=== PATIENT | female | born 1940 | race Caucasian/White ===

== ENCOUNTER → 2018-04-23 13:39 | Outpatient (CLI) | payer MEDICARE, OTHER, SELFPAY ==
[2018-04-23 14:42] LABS: Add Manual Diff / Slide Review NO; Hematocrit 42.1 % (36-46); Hemoglobin 13.9 g/dL (12.0-16.0); Lymphocytes Percent Auto 44.9 % (25-40); Mean Corpuscular HGB Conc 33.1 % (30-36); Mean Corpuscular Hemoglobin 29.3 PG (26-34); Mean Corpuscular Volume 88.4 fL (80-100); Neutrophils Absolute Auto 1900 /uL (3000-5900); Neutrophils Percent Auto 40.1 % (50-75); Platelet Count 187 X10^3/uL (150-400); Red Blood Cell Count 4.76 X10^6/uL (4.0-5.2); Red Cell Distribution Width 15.7 % (11.6-14.8); White Blood Cell Count 4.7 X10^3/uL (4.5-11.0)
== END ==
PROVIDERS: Visit Provider Nurse Practitioner Family
DX: D61.9 Aplastic anemia, unspecified (principal)
CPT/HCPCS: 36415; 85025

== ENCOUNTER 2018-05-19 13:28 | Emergency (ER) | payer MEDICARE, OTHER, SELFPAY ==
--- NOTE | 2018-05-19 13:33 | ED_ITS ---
HPI - Head Injury <POLINA Harris - Last Filed: 05/19/18 21:26> General Chief complaint: Head Injury Stated complaint: FELL,HIT HEAD Time Seen by Provider: 05/19/18 13:31 Source: patient Mode of arrival: ambulatory Limitations: no limitations History of Present Illness HPI Narrative: 77-year-old female with history of aplastic anemia and is a nonsmoker here for complaint of a slight swelling and ecchymosis to the left forehead and the left face in the area of the orbit. She had a ground level fall last night she states that she was trying to put on a pair of pants when she fell forward hitting her forehead and face. She denies any loss of consciousness. She denies any nausea vomiting. She denies any blood thinner use. She denies any neck pain. Pain and injury is limited to the left forehead and left face area. No other concerns or complaints MD Complaint: head injury Related Data Home Medications Medication Instructions Recorded Confirmed fluticasone-salmeterol [Advair 1 inh INHALATION Q12H PRN #0 04/26/11 05/19/18 Diskus] levothyroxine 112 mcg PO QDAY #0 04/26/11 05/19/18 Probiotic 1 cap PO DAILY 05/19/18 05/19/18 Urinary Tract Care 1 tab PO DAILY 05/19/18 05/19/18 Ventolin HFA 1 puff INHALATION PRN PRN 05/19/18 05/19/18 ascorbic acid (vitamin C) [Vitamin 1 g PO DAILY 05/19/18 05/19/18 C] cranberry 1 tab PO DAILY 05/19/18 05/19/18 d-mannose 1 dose PO DAILY 05/19/18 05/19/18 Allergies Allergy/AdvReac Type Severity Reaction Status Date / Time No Known Drug Allergies Allergy Verified 05/19/18 13:48 Review of Systems <POLINA Harris - Last Filed: 05/19/18 21:26> Constitutional Denies chills, Denies fever(s), Denies lethargy and Denies weakness Eyes Denies change in vision, Denies eye discharge, Denies irritation and Denies loss of vision ENT Ears, Nose, Mouth, and Throat: Denies change in voice, Denies neck pain and Denies sore throat Cardiovascular Denies chest pain, Denies irregular heart rhythm, Denies lightheadedness, Denies palpitations, Denies dyspnea, Denies dyspnea on exertion and Denies orthopnea Respiratory Denies cough, Denies dyspnea, Denies dyspnea on exertion and Denies wheezing Gastrointestinal Gastrointestinal: Denies abdominal pain, Denies change in bowel habits, Denies diarrhea, Denies nausea and Denies vomiting Genitourinary Denies hematuria, Denies flank pain, Denies urinary incontinence and Denies urinary urgency Musculoskeletal Denies neck pain Integumentary/Breasts Denies pruritus, Denies erythema, Denies rash and Denies wounds Neurologic Denies confusion, Denies loss of vision and Denies weakness Comments: Ground level fall striking left forehead and left face area Psychiatric Denies anxiety, Denies confusion, Denies depression, Denies homicidal ideation and Denies suicidal ideation Endocrine Denies palpitations Hematologic/Lymphatic Denies easy bruising Allergic/Immunologic Denies wheezing Exam <POLINA Harris - Last Filed: 05/19/18 21:26> Initial Vital Signs Initial Vital Signs: Vital Signs Temperature 97.4 F L 05/19/18 13:41 Pulse Rate 92 H 05/19/18 13:41 Respiratory Rate 16 05/19/18 13:41 Blood Pressure 159/97 H 05/19/18 13:41 Pulse Oximetry 95 05/19/18 13:41 Const General: cooperative and well developed Nutritional Appearance: well nourished Orientation: alert, awake, oriented x3 and not confused [facility] Head: abrasion, Cronin's sign, contusion, No hematoma, No laceration and other ( Ecchymosis and slight swelling to the left forehead area and to the area of the left orbit. Ecchymosis to left lower eyelid. ) Nose: other Mouth: oral mucosae normal and moist mucous membranes Teeth and gingiva: dentition normal Throat: posterior oropharynx normal Eyes Conjunctivae: conjunctivae normal Sclera: sclerae normal Pupils: PERRL EOM: EOM intact bilaterally Neck Neck: normal visual inspection, trachea midline, No lymphadenopathy, No midline deformity and No JVD Lymphatic: No lymphedema Resp Effort & Inspection: normal respiratory effort, able to speak in complete sentences, no respiratory distress and no use of accessory muscles Auscultation: clear to auscultation bilaterally, no rales, no rhonchi and no wheezes Cardio Rate: regular rate Rhythm: regular rhythm Heart Sounds: no click, no gallops, no murmurs and no rubs Skin General: no rashes or lesions noted, No jaundice and No petechiae Neuro General: alert, oriented x3, gait normal and no focal motor deficits Speech: speech normal <Abiodun Walls DO - Last Filed: 05/23/18 20:47> Initial Vital Signs Initial Vital Signs: Vital Signs Temperature 97.4 F L 05/19/18 13:41 Pulse Rate 92 H 05/19/18 13:41 Respiratory Rate 16 05/19/18 13:41 Blood Pressure 159/97 H 05/19/18 13:41 Pulse Oximetry 95 05/19/18 13:41 Course <POLINA Harris - Last Filed: 05/19/18 21:26> Orders Ordered: Discontinued Medications Acetaminophen (Tylenol) 650 mg PO NOW ONE Stop: 05/19/18 13:42 Last Admin: 05/19/18 13:57 Dose: 650 mg Vital Signs - 8 hr 05/19/18 13:41 05/19/18 15:20 Temperature 97.4 F L Pulse Rate 92 H 80 Respiratory Rate 16 17 Blood Pressure 159/97 H 117/66 Pulse Oximetry 95 <Abiodun Walls DO - Last Filed: 05/23/18 20:47> Orders Ordered: Discontinued Medications Acetaminophen (Tylenol) 650 mg PO NOW ONE Stop: 05/19/18 13:42 Last Admin: 05/19/18 13:57 Dose: 650 mg Vital Signs - 8 hr 05/19/18 13:41 05/19/18 15:20 Temperature 97.4 F L Pulse Rate 92 H 80 Respiratory Rate 16 17 Blood Pressure 159/97 H 117/66 Pulse Oximetry 95 MDM - Head Injury <POLINA Harris - Last Filed: 05/19/18 21:26> Imaging Data CT scan - head: Radiologist's impression: [place] [address] [place] Scan Report Signed Patient: Andria Hernandez JMR#: [id number] : 3Acct:[id number] Age/Sex: 77 / FDate of Service: 05/19/18 Loc: ED Accession Number: [id number] Procedure: CT head/brain wo con Ordering Provider: Galindo Jones PROCEDURE: CT HEAD/BRAIN WO CON INDICATIONS: glf hitting left forehead and face TECHNIQUE: Noncontrast 4.5 mm thick angled axial sections acquired from the foramen magnum to the vertex, with coronal and sagittal reformats. For radiation dose reduction, the following was used: automated exposure control, adjustment of mA and/or kV according to patient size. COMPARISON: None. FINDINGS: Image quality: Excellent. CSF spaces: Basal cisterns are patent. No extra-axial fluid collections. The ventricles are symmetric in size and shape. Brain: No intracranial bleeds or masses. There is cerebral volume loss for age , with resultant ventricular and sulcal prominence. There are periventricular and deep white matter chronic small vessel ischemic changes. There is intracranial internal carotid artery atherosclerosis. Foci of old ischemia are noted within the right basal ganglia and external capsule. Skull and face: Calvarium and visualized facial bones appear intact, without suspicious lesions. Left frontal scalp hematoma. Sinuses: Visualized sinuses demonstrate mucosal thickening and fluid within the right maxillary sinus, seen only in partial view. IMPRESSION: 1. No acute intracranial process. 2. Mild to moderate atrophy and chronic microvascular ischemic changes. 3. Left frontal scalp hematoma. 4. Partially visualized mucosal thickening and fluid in the right maxillary sinus suggestive of sinusitis. Dictated by: Claudette Ho M.D. on 05/19/2018 at 15:01 Approved by: Claudette Ho M.D. on 05/19/2018 at 15:[address]: Radiologist's impression: [place] [address] CT Scan Report Signed Patient: Andria Hernandez R#: [id number] : 3Acct:[id number] Age/Sex: 77 / FDate of Service: 05/19/18 Loc: ED Accession Number: [id number] Procedure: CT facial bones wo con Ordering Provider: Galindo Jones PROCEDURE: CT FACIAL BONES WO CON INDICATIONS: glf hitting left forehead and face TECHNIQUE: Noncontrast 2.5 mm thick axial images acquired from the mandible through the frontal sinuses, with coronal and sagittal reformatting. For radiation dose reduction, the following was used: automated exposure control, adjustment of mA and/or kV according to patient size. COMPARISON: None. FINDINGS: Image quality: Excellent. Bones and teeth: Orbital balbuena are intact. Sinus balbuena show no fracture or deformity. Nasal bones and septum are intact. Visualized portions of the mandible demonstrate no fractures or subluxation. Zygomatic arches are intact. Pterygoid plates are intact. Visualized portions of the skull base and auditory canals are intact. Sinuses: Includes full thickening including areas of fluid are present in the right maxillary sinus. Soft tissues: Mild left frontal scalp hematoma. Vascular: Visualized vascular structures appear normal in the absence of contrast. Bony vascular foramina and canals are intact. IMPRESSION: 1. Mild left scalp hematoma. No visualized fractures. 2. Mucosal thickening and fluid within the right maxillary sinus suggestive of sinusitis. Dictated by: Claudette Ho M.D. on 05/19/2018 at 14:37 Approved by: Claudette Ho M.D. on 05/19/2018 at 14:56 MDM Narrative Medical decision making narrative: CT of the head and the face were obtained were negative for any acute findings. Signs and symptoms presents as contusion to the left forehead and left face area. [id number] Tylenol or Motrin as needed for any discomfort. Ice to area to help with any swelling. Follow up with primary care provider next week. Return emergency room for any worsening symptoms. Head injury instructions are provided with warning signs to return to the emergency room. Discharge Plan Departure Patient Disposition: Home Clinical Impression: Minor closed head injury Discharge Date/Time: 05/19/18 15:20 Interventions: ED Discharge Assessment Last Done: 05/19/18 15:20 Instructions: Closed Head Injury Activity Restrictions/Additional Instructions: CT of the head and the face were obtained were negative for any acute findings. Signs and symptoms presents as contusion to the left forehead and left face area. [id number] Tylenol or Motrin as needed for any discomfort. Ice to area to help with any swelling. Follow up with primary care provider next week. Return emergency room for any worsening symptoms. Head injury instructions are provided with warning signs to return to the emergency room. Prescriptions: No Action levothyroxine 112 MCG tablet 112 mcg PO QDAY Qty: 0 RF: 0 fluticasone-salmeterol [Advair Diskus] 250-50 mcg/dose Blister With Device 1 inh INHALATION Q12H PRN (Reason: BREATHING ISSUES) Qty: 0 RF: 0 ascorbic acid (vitamin C) [Vitamin C] 500 mg Tablet 1 g PO DAILY RF: 0 Probiotic 1 cap PO DAILY RF: 0 Urinary Tract Care 1 tab PO DAILY RF: 0 Ventolin HFA 1 puff Inhalation PRN PRN (Reason: Shortness Of Breath) RF: 0 cranberry 1 tab PO DAILY RF: 0 d-mannose 1 dose PO DAILY RF: 0 Referrals: [facility] [Provider Group]
[2018-05-19 13:41] VITALS: BP 159/97; PULSE 92; RESP 16; TEMP 36.3; O2SAT 95
[2018-05-19] MEDS: ACETAMINOPHEN 325 MG TABLET 650 MG PO (13:57)
--- NOTE | 2018-05-19 14:41 | DI.CT.S_ITS ---
PROCEDURE: CT HEAD/BRAIN WO CON INDICATIONS: glf hitting left forehead and face TECHNIQUE: Noncontrast 4.5 mm thick angled axial sections acquired from the foramen magnum to the vertex, with coronal and sagittal reformats. For radiation dose reduction, the following was used: automated exposure control, adjustment of mA and/or kV according to patient size. COMPARISON: None. FINDINGS: Image quality: Excellent. CSF spaces: Basal cisterns are patent. No extra-axial fluid collections. The ventricles are symmetric in size and shape. Brain: No intracranial bleeds or masses. There is cerebral volume loss for age, with resultant ventricular and sulcal prominence. There are periventricular and deep white matter chronic small vessel ischemic changes. There is intracranial internal carotid artery atherosclerosis. Foci of old ischemia are noted within the right basal ganglia and external capsule. Skull and face: Calvarium and visualized facial bones appear intact, without suspicious lesions. Left frontal scalp hematoma. Sinuses: Visualized sinuses demonstrate mucosal thickening and fluid within the right maxillary sinus, seen only in partial view. IMPRESSION: 1. No acute intracranial process. 2. Mild to moderate atrophy and chronic microvascular ischemic changes. 3. Left frontal scalp hematoma. 4. Partially visualized mucosal thickening and fluid in the right maxillary sinus suggestive of sinusitis. Dictated by: Claudette Ho M.D. on 05/19/2018 at 15:01 Approved by: Claudette Ho M.D. on 05/19/2018 at 15:03
--- NOTE | 2018-05-19 14:41 | DI.CT.S_ITS ---
PROCEDURE: CT FACIAL BONES WO CON INDICATIONS: glf hitting left forehead and face TECHNIQUE: Noncontrast 2.5 mm thick axial images acquired from the mandible through the frontal sinuses, with coronal and sagittal reformatting. For radiation dose reduction, the following was used: automated exposure control, adjustment of mA and/or kV according to patient size. COMPARISON: None. FINDINGS: Image quality: Excellent. Bones and teeth: Orbital balbuena are intact. Sinus balbuena show no fracture or deformity. Nasal bones and septum are intact. Visualized portions of the mandible demonstrate no fractures or subluxation. Zygomatic arches are intact. Pterygoid plates are intact. Visualized portions of the skull base and auditory canals are intact. Sinuses: Includes full thickening including areas of fluid are present in the right maxillary sinus. Soft tissues: Mild left frontal scalp hematoma. Vascular: Visualized vascular structures appear normal in the absence of contrast. Bony vascular foramina and canals are intact. IMPRESSION: 1. Mild left scalp hematoma. No visualized fractures. 2. Mucosal thickening and fluid within the right maxillary sinus suggestive of sinusitis. Dictated by: Claudette Ho M.D. on 05/19/2018 at 14:37 Approved by: Claudette Ho M.D. on 05/19/2018 at 14:56
[2018-05-19 15:20] VITALS: BP 117/66; PULSE 80; RESP 17
== END 2018-05-19 15:20 | disposition home or self-care (01) ==
PROVIDERS: Emergency Provider Nurse Practitioner Family
DX: S00.90XA Unspecified superficial injury of unspecified part of head, initial encounter (principal); W18.30XA Fall on same level, unspecified, initial encounter
CPT/HCPCS: 70450; 70486; 99283; 99284

== ENCOUNTER → 2019-07-23 11:24 | Outpatient (CLI) | payer MEDICARE, SELFPAY ==
--- NOTE | 2019-07-23 11:30 | DI.US.S_ITS ---
PROCEDURE: US EXTREMITY NONVASC LOWER RT INDICATIONS: SWELLING, PAIN TECHNIQUE: Real-time scanning was performed of the right popliteal fossa, with image documentation. COMPARISON: None. FINDINGS: Complex Manley's cyst measuring 5.8 x 1.3 cm with additional adjacent complex cyst measuring 5.1 x 1.5 cm IMPRESSION: 2 popliteal fossa complex fluid collections suspicious for Manley's cyst. Dictated by: Rafael Diaz RR Interpreted: Gallo Lugo MD on 07/24/2019 at 8:33 Approved by: Gallo Lugo M.D. on 07/24/2019 at 11:21
== END ==
PROVIDERS: PCP Internal Medicine; Referring Provider Internal Medicine; Visit Provider Internal Medicine
DX: M25.561 Pain in right knee (principal); M71.21 Synovial cyst of popliteal space [Baker], right knee
CPT/HCPCS: 76882

== ENCOUNTER → 2019-12-08 11:20 | Outpatient (CLI) | payer MEDICARE, SELFPAY ==
[2019-12-09 06:45] LABS: COVID19 Sendout Not Detected (Not Detect)
== END ==
PROVIDERS: PCP Internal Medicine; Visit Provider Physician Assistant
DX: Z01.812 Encounter for preprocedural laboratory examination (principal)
CPT/HCPCS: 87635

== ENCOUNTER → 2019-12-11 11:46 | Outpatient (CLI) | payer MEDICARE, SELFPAY ==
--- NOTE | 2019-12-16 09:57 | PM.PFT.1 ---
Pulmonary Function Test Referral & Results Date Patient Seen: 12/11/19 Requesting provider: Diego Gaviria Results: The spirometry demonstrates an FVC of 1.42 L which is 56% of predicted. The FEV1 was measured at 0.92 L which is 49% of predicted. The FEV1/FVC ratio was 65 which is 86% of predicted. Following the administration of bronchodilator there was a 23% improvement in FEV1 and an 85% improvement in FEF 25-75%. Lung volumes show an SVC of 1.64 L which is 65% of predicted. The diffusing capacity was measured at 16.04 which is 74% of predicted. No hemoglobin value was provided, so no correction for potential anemia could be made, if appropriate. The maximum voluntary ventilation was reduced Interpretation: This study demonstrates moderately severe obstructive lung disease with FEV1 of less than 1 L, however there is evidence of significant benefit following bronchodilator as above There is also ayqe-pi-ecbxcgln restrictive lung disease based on reduction SVC There is also mild reduction in diffusing capacity suggesting an element of disease at the capillary alveolar level
== END ==
PROVIDERS: PCP Internal Medicine; Referring Provider Internal Medicine; Visit Provider Internal Medicine
DX: J45.998 Other asthma (principal)
CPT/HCPCS: 94060; 94726; 94729

== ENCOUNTER 2020-03-01 12:12 | Observation (INO) | payer MEDICARE, SELFPAY ==
[2020-03-01] VITALS (20 sets, daily range): BP systolic 123–185; BP diastolic 67–90; PULSE 51–89; RESP 14–36; TEMP 36.7–37.2; O2SAT 95–99; BMI 25.4
--- NOTE | 2020-03-01 12:28 | ED_ITS ---
HPI - Neuro Symptoms/Deficit General Chief Complaint: Neuro Symptoms/Deficit Stated Complaint: Feeling Disoriented and Foggy Time Seen by Provider: 03/01/20 12:20 Source: patient Mode of arrival: Ambulatory Limitations: no limitations History of Present Illness HPI Narrative: 79-year-old woman with a history of hypothyroidism and asthma who presents after noticing an episode of disorientation at 10:45 a.m. this morning [place] [place]. She noted acute confusion, was not sure where she was going what she was doing how she was going to get there with symptoms improving nicely. She was driving was able to drive off the [place] parked briefly was feeling better and then drove to the emergency room. On initial presentation she is alert oriented with no focal neurologic findings and seemingly completely intact cognitively. On Anticoagulants: No Related Data Home Medications Medication Instructions Recorded Confirmed fluticasone propion-salmeterol 1 inh INHALATION Q12H PRN #0 04/26/11 10/18/18 [Advair Diskus] levothyroxine 112 mcg PO QDAY #0 04/26/11 10/18/18 Probiotic 1 cap PO DAILY 05/19/18 10/18/18 Urinary Tract Care 1 tab PO DAILY 05/19/18 10/18/18 Ventolin HFA 1 puff INHALATION PRN PRN 05/19/18 10/18/18 ascorbic acid (vitamin C) [Vitamin 1 g PO DAILY 05/19/18 10/18/18 C] cranberry 1 tab PO DAILY 05/19/18 10/18/18 d-mannose 1 dose PO DAILY 05/19/18 10/18/18 dextroamphetamine PO 10/18/18 10/18/18 lorazepam PO 10/18/18 10/18/18 Allergies Allergy/AdvReac Type Severity Reaction Status Date / Time No Known Drug Allergies Allergy Verified 03/01/20 12:23 Review of Systems Review of Systems Narrative: Pertinent positive and negative findings as per HPI Remainder of review of systems is otherwise unremarkable for Constitutional: Fevers, chills, weakness ENT: No sore throat, neck pain, ear pain CV: Chest pain, palpitations, dyspnea on exertion Respiratory: Cough, wheeze, dyspnea GI: Nausea, vomiting, diarrhea, change in bowel habits, black or bloody stools : Dysuria, hematuria, flank pain MS: Muscle weakness, numbness, joint swelling or warmth Skin: Rashes, nonhealing lesions Neuro: Syncope, dizziness, tingling Patient History Medical History Aplastic anemia (Acute) Asthma (Acute) Hypothyroidism (acquired) (Acute) Social History Smoking Status: Never smoker Smoking Status: Never smoker alcohol intake frequency: 0-2 drinks per day Substance Use Type: marijuana Exam Narrative Exam Narrative: General: Healthy appearing, in no acute distress. Able to give a complete and coherent history. Well-nourished well-developed HEENT: Moist mucous membranes, normal sclera with reactive pupils, Neck: No JVD, supple Respiratory: Lungs are clear to auscultation, no wheezing no rales no rhonchi. Full and symmetrical air movement Cardiac: Regular rate and rhythm no murmurs no bruits Abdomen: Soft nontender good bowel tones, no flank pain Skin: Warm and dry, no rashes Neurologic: Grossly neurologically intact with no obvious asymmetries or abnormalities. NIH=0 Extremities: No trauma, well perfused Psych: Cooperative, appropriate insight and affect Initial Vital Signs Initial Vital Signs: Vital Signs Temperature 98.1 F 03/01/20 12:20 Pulse Rate 89 03/01/20 12:20 Respiratory Rate 14 03/01/20 12:20 Blood Pressure 185/90 H 03/01/20 12:20 Pulse Oximetry 96 03/01/20 12:20 Course Orders Ordered: ED Orders 03/01/20 12:27 Urine Drug Screen, Rapid Stat 03/01/20 12:30 Complete Blood Count AUTO DIFF Stat Comprehensive Metabolic Panel Stat Partial Thromboplastin Time Stat Prothrombin Time INR Stat 03/01/20 12:34 EKG-12 Lead Stat 03/01/20 12:35 CT head/brain wo con Stat 03/01/20 14:48 MR head/brain wo/w con Stat COVID19 -ED/INPAT/OR/L&D Stat Sodium Chloride (Normal Saline 0.9%) 1,000 mls @ 150 mls/hr IV CONT ZEESHAN Last Admin: 03/01/20 12:51 Dose: 150 mls/hr Documented by: MMINOR Vital Signs Vital signs: Vital Signs - 8 hr 03/01/20 12:20 03/01/20 12:31 03/01/20 12:54 Temperature 98.1 F Pulse Rate 89 77 62 Respiratory Rate 14 18 Blood Pressure 185/90 H 168/82 H Pulse Oximetry 96 97 03/01/20 13:00 03/01/20 13:30 03/01/20 14:00 Temperature Pulse Rate 67 56 L 55 L Respiratory Rate 16 19 Blood Pressure 161/77 H 151/67 H Pulse Oximetry 99 03/01/20 14:01 03/01/20 14:30 Temperature Pulse Rate 53 L 74 Respiratory Rate 22 24 Blood Pressure 150/70 H 151/90 H Pulse Oximetry 99 99 MDM - Neuro Symptoms/Deficit Medical Records Attestation: I reviewed the patient's medical records. Lab Data Attestation: I reviewed the patient's lab results. Result diagrams: 03/01/20 12:30 03/01/20 12:30 Labs: Lab Results 03/01/20 03/01/20 03/01/20 Range/Units 12:30 12:30 12:30 WBC 4.7 (4.5-11.0) X10^3/uL RBC 4.82 (4.0-5.2) X10^6/uL Hgb 14.2 (12.0-16.0) g/dL Hct 42.3 (36-46) % MCV 87.9 (80-100) fL MCH 29.5 (26-34) PG MCHC 33.5 (30-36) % RDW 15.8 H (11.6-14.8) % Plt Count 137 L (150-400) X10^3/uL Neut % (Auto) 44.8 L (50-75) % Lymph % (Auto) 41.3 H (25-40) % [place] % (Auto) 11.9 (3-14) % Eos % (Auto) 1.9 L (2-4) % Baso % (Auto) 0.1 (0-2) % Neut # (Auto) 2100 (5928-4725) /uL Lymph # (Auto) 1900 (4050-4929) /uL [place] # (Auto) 600 (0-900) /uL Eos # (Auto) 100 (0-450) /uL Baso # (Auto) 0 (0-100) /uL PT 10.3 (10.1-12.7) SECONDS INR 0.9 (0.9-1.3) APTT 36 (26.4-36.2) SECONDS Sodium 139 (137-145) mmol/L Potassium 4.1 (3.4-5.1) mmol/L Chloride 103 (98-107) mmol/L Carbon Dioxide 26 (22-32) mmol/L BUN 13 (7-17) mg/dL Creatinine 0.64 (0.52-1.04) mg/dL Estimated GFR > 60.0 (>60) mL/min BUN/Creatinine Ratio 20.3 (6-22) Glucose 108 (80-110) mg/dL Calcium 9.5 (8.4-10.2) mg/dL Total Bilirubin 1.3 (0.2-1.3) mg/dL AST 38 H (14-36) IU/L ALT 18 (<35) IU/L Alkaline Phosphatase 76 (38-126) U/L Total Protein 8.1 (6.3-8.2) g/dL Albumin 4.6 (3.5-5.0) g/dL Globulin 3.5 (1.7-4.1) g/dL Albumin/Globulin Ratio 1.3 (1.0-2.8) Imaging Data CT scan - head: Radiologist's Impression: FINDINGS: Image quality: Excellent. CSF spaces: Basal cisterns are patent. No extra-axial fluid collections. The ventricles are symmetric in size and shape. Brain: There are old lacunars infarct in the right caudate and right internal capsule. No intracranial bleeds or masses. There is mild cerebral volume loss for age, with resultant ventricular and sulcal prominence. There are [id number] periventricular and deep white matter chronic small vessel ischemic changes. There is intracranial internal carotid artery atherosclerosis. Skull and face: Calvarium and visualized facial bones appear intact, without suspicious lesions. Sinuses: Visualized sinuses and mastoids are clear. IMPRESSION: 1. No acute intracranial abnormalities. 2. 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 3. Cerebral volume loss and chronic microvascular ischemic changes. Dictated by: Kevin Eisenberg M.D. on 03/01/2020 at 12:43 MDM Narrative Medical decision making narrative: 79-year-old woman with an hour and a half of acute confusion and cognitive complaints. Has resolved completely at this time. CT scan suggests no acute bleed however there is evidence of old lacunar infarcts. Events today are most consistent with a TIA and admission for further workup is recommended. Symptoms have resolved so tPA is not administered. Will speak with the hospitalist. Will try to expedite MRI to expedite overall admission. Discharge Plan Departure Patient Disposition: Admitted as Observation Clinical Impression: Transient cerebral ischemia Qualifiers: Transient cerebral ischemia type: unspecified Qualified Code(s): G45.9 - Transient cerebral ischemic attack, unspecified Referrals: Christina Saeed MD [Primary Care Provider] -
--- NOTE | 2020-03-01 12:35 | DI.CT.S_ITS ---
PROCEDURE: CT HEAD/BRAIN WO CON INDICATIONS: brief confusion/disorientation TECHNIQUE: Noncontrast 4.5 mm thick angled axial sections acquired from the foramen magnum to the vertex, with coronal and sagittal reformats. For radiation dose reduction, the following was used: automated exposure control, adjustment of mA and/or kV according to patient size. COMPARISON: [facility], CT, CT HEAD/BRAIN WO CON, 05/19/2018, 13:55. FINDINGS: Image quality: Excellent. CSF spaces: Basal cisterns are patent. No extra-axial fluid collections. The ventricles are symmetric in size and shape. Brain: There are old lacunars infarct in the right caudate and right internal capsule. No intracranial bleeds or masses. There is mild cerebral volume loss for age, with resultant ventricular and sulcal prominence. There are xero-oa-ugbrewly periventricular and deep white matter chronic small vessel ischemic changes. There is intracranial internal carotid artery atherosclerosis. Skull and face: Calvarium and visualized facial bones appear intact, without suspicious lesions. Sinuses: Visualized sinuses and mastoids are clear. IMPRESSION: 1. No acute intracranial abnormalities. 2. 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 3. Cerebral volume loss and chronic microvascular ischemic changes. Dictated by: Kevin Eisenberg M.D. on 03/01/2020 at 12:43 Approved by: Kevin Eisenberg M.D. on 03/01/2020 at 12:52
[2020-03-01 12:41] LABS: Add Manual Diff / Slide Review NO; Basophils Absolute Auto 0 /uL (0-100); Basophils Percent Auto 0.1 % (0-2); Eosinophils Absolute Auto 100 /uL (0-450); Eosinophils Percent Auto 1.9 % (2-4); Hematocrit 42.3 % (36-46); Hemoglobin 14.2 g/dL (12.0-16.0); Lymphocytes Absolute Auto 1900 /uL (1100-4500); Lymphocytes Percent Auto 41.3 % (25-40); Mean Corpuscular HGB Conc 33.5 % (30-36); Mean Corpuscular Hemoglobin 29.5 PG (26-34); Mean Corpuscular Volume 87.9 fL (80-100); Monocytes Absolute Auto 600 /uL (0-900); Monocytes Percent Auto 11.9 % (3-14); Neutrophils Absolute Auto 2100 /uL (1500-7000); Neutrophils Percent Auto 44.8 % (50-75); Platelet Count 137 X10^3/uL (150-400); Red Blood Cell Count 4.82 X10^6/uL (4.0-5.2); Red Cell Distribution Width 15.8 % (11.6-14.8); White Blood Cell Count 4.7 X10^3/uL (4.5-11.0)
[2020-03-01 12:47] LABS: INR 0.9 (0.9-1.3); Prothrombin Time 10.3 SECONDS (10.1-12.7)
[2020-03-01 12:49] LABS: PTT Partial Thromboplastin Tim 36 SECONDS (26.4-36.2)
[2020-03-01 12:51] LABS: Alanine Aminotransferase 18 IU/L (<35); Albumin 4.6 g/dL (3.5-5.0); Albumin Globulin Ratio 1.3 (1.0-2.8); Alkaline Phosphatase 76 U/L (38-126); Aspartate Aminotransferase 38 IU/L (14-36); BUN Creatinine Ratio 20.3 (6-22); Bilirubin Total 1.3 mg/dL (0.2-1.3); Blood Urea Nitrogen 13 mg/dL (7-17); Calcium 9.5 mg/dL (8.4-10.2); Carbon Dioxide 26 mmol/L (22-32); Chloride 103 mmol/L (98-107); Estimated Glomerular Filt Rate > 60.0 mL/min (>60); Globulin 3.5 g/dL (1.7-4.1); Glucose 108 mg/dL (80-110); HEMOLYSIS < 15 (0-50); Potassium 4.1 mmol/L (3.4-5.1); Sodium 139 mmol/L (137-145); Total Protein 8.1 g/dL (6.3-8.2)
[2020-03-01] MEDS: SODIUM CHLORIDE 0.9% 1,000 ML 150 ML IV (12:51)
--- NOTE | 2020-03-01 14:48 | DI.MRI.S_ITS ---
PROCEDURE: MR HEAD/BRAIN WO/W CON INDICATIONS: TIA - stroke concern TECHNIQUE: Noncontrast axial T1 spin echo, axial T2 fast spin echo, sagittal and axial FLAIR, coronal T2 fast spin echo, axial gradient echo, axial diffusion and ADC through the brain. After the administration of contrast, axial and coronal T1 spin echo with fat saturation through the brain. COMPARISON: [facility], CT, CT HEAD/BRAIN WO CON, 03/01/2020, 12:26. FINDINGS: Image quality: Excellent. CSF spaces: Basal cisterns are patent. No extra-axial fluid collections. Ventricles are normal in size and shape. Brain: No midline shift. No intracranial bleeds or masses. No abnormal intracranial enhancement. There is cerebral volume loss for age. There is periventricular white matter chronic small vessel ischemic change. There are old lacunar infarcts in the right posterior caudate, right anterior putamen and left frontal white matter. The brainstem appears normal. Diffusion-weighted images demonstrate no acute ischemic insults. No chronic ischemic insults. Normal intravascular flow voids are present. Skull and face: Calvarial marrow is normal in signal. Orbits appear normal. Sinuses: Sinuses and mastoids appear clear. IMPRESSION: 1. No acute intracranial abnormalities. 2. Old lacunar infarcts are present bilaterally. 3. Cerebral volume loss and chronic microvascular ischemic changes. Dictated by: Kevin Eisenberg M.D. on 03/01/2020 at 16:23 Approved by: Kevin Eisenberg M.D. on 03/01/2020 at 16:32
[2020-03-01 15:29] LABS: UR Morphine/Opiate cutoff 300 Negative (Negative); Ur Creatinine Normal (Normal); Ur Specific Gravity Normal (Normal); Urine Amphetamines Negative (Negative); Urine Barbiturates Negative (Negative); Urine Benzodiazepines Negative (Negative); Urine Cocaine Negative (Negative); Urine MDMA Negative (Negative); Urine Methadone Negative (Negative); Urine Methamphetamines Negative (Negative); Urine Oxycodone Negative (Negative); Urine Phencyclidine Negative (Negative); Urine Tetrahydrocannabinol Negative (Negative); Urine Tricyclic Antidepressant Negative (Negative); Urine pH Normal (Normal)
[2020-03-01 15:38] LABS: COVID19 -Nasal RAPID Negative (Negative)
--- NOTE | 2020-03-01 18:31 | PM.HP.1 ---
History of Present Illness History of Present Illness Date Patient Seen: 03/01/20 Time Patient Seen: 18:32 Chief complaint: Feeling Disoriented and Foggy Narrative: Andria Hernandez is a 79 year old female with PMH of ADD, anxiety, hypothyroidism, aplastic anemia in remission who presented to the emergency room after an episode of disorientation this morning on her way from home on [facility] to run some errands in [employer]. On the [employer] boat ride over she could not remember why she was on the [employer] or what she was doing. She was able to call a relative in town who was a prior nurse who recommended that she come to the emergency room to be evaluated. Symptoms lasted for about 20-30 minutes. She stated the relative was able to understand her speech, and the patient had no trouble with word finding. She denies any weakness, facial droop, slurred speech, numbness, tingling. She denies any chest pain, palpitations, shortness of breath, lower extremity edema, abdominal pain, nausea, vomiting, chest pressure, left arm pain or numbness. In the emergency room, patient was hypertensive but remainder vital signs were unremarkable. Laboratory evaluation revealed a mild thrombocytopenia with a platelet count of 137. Coagulation studies were unremarkable. Chemistries were unremarkable. Urine drug screen was negative. Head CT did show old lacunar infarcts bilaterally, and chronic microvascular ischemic changes. MRI was performed before her arrival to the floor and was negative for acute infarcts but did confirm old lacunar infarcts bilaterally. Patient History Medical History Aplastic anemia (Acute) Asthma (Acute) Hypothyroidism (acquired) (Acute) Family & Social History Safety & Behavioral: Feels Safe in Current Yes Environment Been Physically Hurt or No Threatened By a Person Tobacco & Substance use: Smoking Status Never smoker alcohol intake frequency 0-2 drinks per day Substance Use Type marijuana Meds Home Medications and Allergies Home Medications Medication Instructions Recorded Confirmed Type fluticasone propion-salmeterol 1 inh INHALATION Q12H PRN #0 04/26/11 10/18/18 History [Advair Diskus] levothyroxine 112 mcg PO QDAY #0 04/26/11 10/18/18 History Probiotic 1 cap PO DAILY 05/19/18 10/18/18 History Urinary Tract Care 1 tab PO DAILY 05/19/18 10/18/18 History Ventolin HFA 1 puff INHALATION PRN PRN 05/19/18 10/18/18 History ascorbic acid (vitamin C) [Vitamin 1 g PO DAILY 05/19/18 10/18/18 History C] cranberry 1 tab PO DAILY 05/19/18 10/18/18 History d-mannose 1 dose PO DAILY 05/19/18 10/18/18 History dextroamphetamine PO 10/18/18 10/18/18 History lorazepam PO 10/18/18 10/18/18 History Allergies Allergy/AdvReac Type Severity Reaction Status Date / Time No Known Drug Allergies Allergy Verified 03/01/20 12:23 Review of Systems Review of Systems Narrative: All other systems reviewed with the patient and are negative unless otherwise stated. Exam Vital Signs (past 8 hours): - 03/01/20 12:20 03/01/20 12:31 03/01/20 12:54 Temperature 98.1 F Pulse Rate 89 77 62 Respiratory Rate 14 18 Blood Pressure 185/90 H 168/82 H Pulse Oximetry 96 97 03/01/20 13:00 03/01/20 13:30 03/01/20 14:00 Temperature Pulse Rate 67 56 L 55 L Respiratory Rate 16 19 Blood Pressure 161/77 H 151/67 H Pulse Oximetry 99 03/01/20 14:01 03/01/20 14:30 03/01/20 15:00 Temperature Pulse Rate 53 L 74 57 L Respiratory Rate 22 24 23 Blood Pressure 150/70 H 151/90 H Pulse Oximetry 99 99 03/01/20 15:01 03/01/20 15:33 03/01/20 15:35 Temperature Pulse Rate 59 L 66 53 L Respiratory Rate 25 H 36 H 19 Blood Pressure 154/72 H 162/71 H Pulse Oximetry 96 03/01/20 16:18 03/01/20 16:30 03/01/20 16:31 Temperature Pulse Rate 54 L 53 L 51 L Respiratory Rate Blood Pressure 169/74 H 163/74 H Pulse Oximetry 98 95 03/01/20 17:30 03/01/20 17:40 Temperature 99.0 F Pulse Rate 61 71 Respiratory Rate 20 Blood Pressure 161/86 H 170/70 H Pulse Oximetry 97 Oxygen Delivery Method Room Air Oxygen Flow Rate 0 Narrative Exam Narrative: GENERAL APPEARANCE: Well developed, well nourished, mildly anxious constantly picking at her nails and fidgeting her hands or folding and unfolding a napkin. SKIN: Inspection of the skin reveals no rashes, ulcerations or petechiae. HEENT: Normocephalic atraumatic, extraocular muscles are intact, oropharynx is clear and mucous membranes are moist, neck is supple without adenopathy NECK: Supple and symmetric. There was no thyroid enlargement, and no tenderness, or masses were felt. CHEST: Normal AP diameter and normal contour without any kyphoscoliosis. LUNGS: Auscultation of the lungs revealed no wheezes, rhonchi, or rales. CARDIOVASCULAR: There was a regular rate and rhythm without any murmurs, gallops, rubs. Peripheral pulses were 2+ and symmetric. ABDOMEN: Soft and nontender with normal bowel sounds. No ascites was noted. MUSCULOSKELETAL: There was no tenderness or effusions noted. Muscle strength and tone were normal. EXTREMITIES: No cyanosis, clubbing or edema. NEUROLOGIC: Alert and oriented x 3. Normal affect. Gait was normal. Strength is +5/5 in the Upper Extremities and Lower Extremities Bilaterally. Sensation to touch was normal. No dysmetria. CN2-12 grossly intact bilaterally. Objective Labs Result Diagrams: 03/01/20 12:30 03/01/20 12:30 Labs: Laboratory Results - last 24 hr 03/01/20 03/01/20 03/01/20 12:30 12:30 12:30 WBC 4.7 RBC 4.82 Hgb 14.2 Hct 42.3 MCV 87.9 MCH 29.5 MCHC 33.5 RDW 15.8 H Plt Count 137 L Neut % (Auto) 44.8 L Lymph % (Auto) 41.3 H Pettis % (Auto) 11.9 Eos % (Auto) 1.9 L Baso % (Auto) 0.1 Neut # (Auto) 2100 Lymph # (Auto) 1900 Pettis # (Auto) 600 Eos # (Auto) 100 Baso # (Auto) 0 PT 10.3 INR 0.9 APTT 36 Sodium 139 Potassium 4.1 Chloride 103 Carbon Dioxide 26 BUN 13 Creatinine 0.64 Estimated GFR > 60.0 BUN/Creatinine Ratio 20.3 Glucose 108 Calcium 9.5 Total Bilirubin 1.3 AST 38 H ALT 18 Alkaline Phosphatase 76 Total Protein 8.1 Albumin 4.6 Globulin 3.5 Albumin/Globulin Ratio 1.3 U Opiates 300ng/mL cut Ur Oxycodone Screen Urine Methadone Screen Ur Barbiturates Screen U Tricyclic Antidepress Ur Phencyclidine Scrn Ur Amphetamines Screen U Methamphetamines Scrn Ur MDMA Scrn (Ecstasy) U Benzodiazepines Scrn Urine Cocaine Screen U Marijuana (THC) Screen COVID-19 PCR 03/01/20 03/01/20 15:06 15:10 WBC RBC Hgb Hct MCV MCH MCHC RDW Plt Count Neut % (Auto) Lymph % (Auto) Pettis % (Auto) Eos % (Auto) Baso % (Auto) Neut # (Auto) Lymph # (Auto) Pettis # (Auto) Eos # (Auto) Baso # (Auto) PT INR APTT Sodium Potassium Chloride Carbon Dioxide BUN Creatinine Estimated GFR BUN/Creatinine Ratio Glucose Calcium Total Bilirubin AST ALT Alkaline Phosphatase Total Protein Albumin Globulin Albumin/Globulin Ratio U Opiates 300ng/mL cut Negative Ur Oxycodone Screen Negative Urine Methadone Screen Negative Ur Barbiturates Screen Negative U Tricyclic Antidepress Negative Ur Phencyclidine Scrn Negative Ur Amphetamines Screen Negative U Methamphetamines Scrn Negative Ur MDMA Scrn (Ecstasy) Negative U Benzodiazepines Scrn Negative Urine Cocaine Screen Negative U Marijuana (THC) Screen Negative COVID-19 PCR Negative Assessment & Plan Assessment & Plan narrative: Andria Hernandez is a 79 year old female with PMH of ADD, anxiety, hypothyroidism, aplastic anemia in remission who presented to the emergency room after an episode of disorientation this morning on her way from home on [facility] to run some errands in [employer]. 1. Disorientation, resolved -patient presented with an episode of disorientation lasting for approximately half an hour. She was mildly hypertensive and MRI did not show an acute infarct but does show old infarcts. Is possible she had a TIA, however I think this is lower in likelihood. Given CT and MRI findings of prior lacunar infarcts bilaterally this could be atrial fibrillation related. Further differentials include a panic attack given her history of anxiety, ineffective dosing of her ADD medications, or given her age and bilateral infarcts early symptoms of dementia. Furhter could be symptomatic hypertension or hypertensive emergency given admission SBP of >180 although she was not symptomatic when she arrived in the ER. -continue telemetry and will order echocardiogram -Risk stratify with A1c, TSH, lipid panel -PT/OT evaluation and treatment. 2. History of CVA - MRI findings as noted above -given bilateral findings there is some concern for atrial fibrillation. Will further evaluate with telemetry, and echocardiogram. If no arrhythmia is noted would recommend a Holter monitor as an outpatient. -will start low-dose aspirin and Lipitor -initial imaging did not include vascular evaluation. Have ordered her for a carotid Doppler ultrasound. 3. ADD - will hold home dextroamphetamine. Recommend outpatient follow up with psychiatrist if no arrythmia or etiology is found. 4. Anxiety - continue home medications 5. Hypothyroidism - continue home levothyroxine 112 mcg\ Code: Full as discussed with the patient, surrogate decision maker is the patient's Dispo: Admitted under observation status as her stay is not expected to exceed 2 midnights DVT: Patient is ambulatory COVID-19 COVID-19 status: Negative
--- NOTE | 2020-03-01 18:54 | DI.ECHO.S_ITS ---
[facility] +---------+ Hospital +---------+ : : [address] : : : : [id number] : : : : Phone: [phone]+ Echocardiogram Report + + :Name: ALIN COLON Study Date: 03/02/2020 Height: 61 in : :[facility] Weight: 135 lb : : Gender: Female BSA: 1.6 m2 : :: 1940 Age: 79 yrs BP: 128/82 mmHg: :Reason For Study: TIA : :Ordering Physician: HOSPITALIST, : :QUAN Performed By: Gloria Hall : :Referring: APRIL LEE : + + Interpretation Summary Left ventricular systolic function appears normal with an estimated ejection fraction of 55 to 60% without focal wall motion abnormality. Diastolic function is difficult to assess because of contradictory data. The right ventricle appears normal. Right ventricular systolic pressure is estimated at 25 mmHg with a CVP of around 3 mmHg. There is moderate left atrial enlargement and mild right atrial enlargement. There is mild mitral and mild tricuspid regurgitation. The aortic valve is mildly sclerotic without stenosis but mild to moderate aortic regurgitation. Procedure: A two-dimensional transthoracic echocardiogram with color flow and Doppler was performed. The study quality was technically adequate. There is no prior echocardiogram noted for this patient. The heart rate ranged between 52-58 bpm during the study. Left Ventricle: The left ventricle is normal in size and wall thickness. Left ventricular systolic function is normal without focal wall motion abnormalities. The ejection fraction is estimated to be 55-60%. Diastolic function could not be accurately assessed due to contradictory data. Right Ventricle: The right ventricle is normal in size and function. Atria: The left atrium is moderately dilated. The right atrium is mildly dilated. There is no Doppler evidence for an interatrial shunt. Mitral Valve: The mitral valve leaflets appear mildly thickened, but open well. There is mild mitral annular calcification. There is mild mitral regurgitation. Aortic Valve: The aortic valve is trileaflet. The aortic valve is slightly calcified. The aortic valve opens well. There is no aortic valve stenosis. There is mild to moderate aortic regurgitation. Tricuspid Valve: The tricuspid valve is normal in structure and function. There is mild tricuspid regurgitation. The right ventricular systolic pressure is estimated to be at least 25 mmHg based on an estimated right atrial pressure of 3 mm Hg. Pulmonic Valve: The pulmonic valve is not well visualized. There is no pulmonic valvular regurgitation. Great Vessels: The aortic root is normal size. The ascending aorta could not be visualized. The IVC is of normal diameter and collapses greater than 50% with a sniff. This suggests a low right atrial pressure of 3 mm Hg. Pericardium/ Pleura There is no pericardial effusion. There is no pleural effusion. MMode/2D Measurements & Calculations LVIDd: 3.5 cm LVOT diam: 2.0 cm LVIDs: 2.5 cm Ao root diam: 3.5 cm FS: 28.6 % Ao Arch Diam (Prox Trans): 2.7 cm EPSS: 0.88 cm IVSd: 0.88 cm LVPWd: 0.75 cm LV sow. diameter/BSA (cm/m^2): 2.2 LV sys. diameter/BSA (cm/m^2): 1.6 LA A2 area: 20.1 cm2 RA long axis: 5.4 cm LA A4 area: 24.9 cm2 RA area: 18.9 cm2 LA length (vol): 6.1 cm RA vol: 56.3 ml LA vol: 69.7 ml RA : 35.2 ml/m2 LA vol index: 43.6 ml/m2 IVC diam: 1.1 cm RVD1 (basal): 2.7 cm TAPSE: 1.8 cm Doppler Measurements & Calculations Ao V2 max: 152.3 cm/sec LVOT Max Mazin: 99.6 cm/sec Ao V2 mean: 97.2 cm/sec LV V1 max P.0 mmHg Ao max P.3 mmHg LV V1 VTI: 24.6 cm Ao mean P.5 mmHg FANNY(I,D): 2.2 cm2 Ao V2 VTI: 35.1 cm FANNY(V,D): 2.0 cm2 sev ratio: 0.70 FANNY indexed to BSA (cm^2/m^2): 1.4 AI P1/2t: 709.0 msec AI dec slope: 197.0 cm/sec2 MV E max mazin: 88.8 cm/sec TR max mazin: 238.3 cm/sec MV A max mazin: 98.6 cm/sec TR max P.7 mmHg MV E/A: 0.90 PA V2 max: 77.0 cm/sec Med Peak E' Mazin: 3.9 cm/sec PA V2 mean: 50.1 cm/sec E/E' med: 22.8 PA mean P.2 mmHg Lat Peak E' Mazin: 6.1 cm/sec PA pr(Accel): 34.0 mmHg E/E' lat: 14.5 E/e' average: 18.7 MV dec time: 0.22 sec SV(NISH): 76.9 ml Reading Physician:02:19 PM
[2020-03-01 19:15] LABS: Troponin I < 0.012 ng/mL (0.01-0.034)
[2020-03-01] MEDS: ACETAMINOPHEN 325 MG TABLET 650 MG PO (20:11)
[2020-03-01] MEDS: ATORVASTATIN 20 MG TABLET 40 MG PO (20:11)
[2020-03-01] MEDS: AMLODIPINE 5 MG TABLET PO (20:11)
--- NOTE | 2020-03-01 22:29 | PC.NURSE ---
Admission note: Andria brought from ER just prior to 1800, wide awake, Ox3 & situation, very talkative and appears nervous r/t situation. BP at admission 170/70. Dr Turk in room to assess patient, writing orders for new meds amlodipine & atorvastatin. I spent time teaching patients about new medications. A while later after 1st dose Norvasc was given, her BP was 123/72. CBG checked @ 143. NIH is zero, speech is clear & her gait is steady. Ambulated to BR and voided. Back to bed, alarm active. Fall precautions in place/teaching given, pt agrees to call nurse if has needs/concerns or needs to get OOB for any reason. *Upon transfer from ER, either getting into or out of wheelchair, patient said she banged her ankle, site cleaned & bandaid applied to skin tear to right medial ankle.
[2020-03-02] VITALS (9 sets, daily range): BP systolic 128–157; BP diastolic 70–85; PULSE 55–66; RESP 16–18; TEMP 36.4–36.9; O2SAT 95–98
--- NOTE | 2020-03-02 03:22 | PC.NURSE ---
Pt resting comfortably. NIH 0
[2020-03-02 06:00] LABS: Alanine Aminotransferase 14 IU/L (<35); Albumin 3.8 g/dL (3.5-5.0); Albumin Globulin Ratio 1.4 (1.0-2.8); Alkaline Phosphatase 56 U/L (38-126); Aspartate Aminotransferase 30 IU/L (14-36); BUN Creatinine Ratio 21.2 (6-22); Bilirubin Total 0.8 mg/dL (0.2-1.3); Bilirubin Unconjugated 0.7 mg/dL (0.0-1.1); Blood Urea Nitrogen 14 mg/dL (7-17); Calcium 9.1 mg/dL (8.4-10.2); Carbon Dioxide 27 mmol/L (22-32); Chloride 106 mmol/L (98-107); Cholesterol 222 mg/dL (140-199); Estimated Glomerular Filt Rate > 60.0 mL/min (>60); Globulin 2.8 g/dL (1.7-4.1); Glucose 94 mg/dL (80-110); HDL Cholesterol 101 mg/dL (40-60); HEMOLYSIS < 15 (0-50); LDL Cholesterol Calculated 109 mg/dL (<100); Magnesium 2.1 mg/dL (1.6-2.3); Sodium 140 mmol/L (137-145); Total Protein 6.6 g/dL (6.3-8.2); Triglycerides 62 mg/dL (35-150)
[2020-03-02 06:01] LABS: Add Manual Diff / Slide Review NO; Basophils Absolute Auto 0 /uL (0-100); Basophils Percent Auto 0.2 % (0-2); Eosinophils Absolute Auto 100 /uL (0-450); Eosinophils Percent Auto 1.9 % (2-4); Hematocrit 38.1 % (36-46); Hemoglobin 12.7 g/dL (12.0-16.0); Lymphocytes Absolute Auto 1200 /uL (1100-4500); Lymphocytes Percent Auto 44.2 % (25-40); Mean Corpuscular HGB Conc 33.3 % (30-36); Mean Corpuscular Hemoglobin 29.2 PG (26-34); Mean Corpuscular Volume 87.8 fL (80-100); Monocytes Absolute Auto 400 /uL (0-900); Monocytes Percent Auto 16.2 % (3-14); Neutrophils Absolute Auto 1000 /uL (1500-7000); Neutrophils Percent Auto 37.5 % (50-75); Platelet Count 118 X10^3/uL (150-400); Red Blood Cell Count 4.34 X10^6/uL (4.0-5.2); Red Cell Distribution Width 16.2 % (11.6-14.8); White Blood Cell Count 2.7 X10^3/uL (4.5-11.0)
[2020-03-02] MEDS: LEVOTHYROXINE 112 MCG TABLET PO (06:12)
[2020-03-02 06:13] LABS: Hemoglobin A1C% w Est Avg Glu 5.6 % (4.0-6.0)
[2020-03-02 06:51] LABS: Free T4, Direct Thyroxine 1.17 ng/dL (0.78-2.19)
[2020-03-02 07:00] LABS: RBC Urine None Seen (0-5/HPF)
[2020-03-02 07:02] LABS: Appearance Urine UA CLEAR; Bilirubin Urine UA NEGATIVE (NEGATIVE); Color Urine UA YELLOW; Glucose Urine UA NEGATIVE (Negative); Ketones Urine UA NEGATIVE (NEGATIVE); Leukocyte Esterase Urine UA NEGATIVE (NEGATIVE); Nitrite Urine UA NEGATIVE (Negative); Occult Blood Urine UA NEGATIVE (Negative); Protein Urine UA NEGATIVE (Negative); Urobilinogen Urine UA 0.2 E.U./dL (0.2)
[2020-03-02 07:16] LABS: Bacteria Urine Moderate (10-30); Culture Indicated Urine Cult Not Indicated; Squamous Epithelial Cell Urine 0-1 /HPF (0-5/HPF); WBC Urine 0-1/HPF (0-5/HPF)
[2020-03-02] MEDS: ASPIRIN EC 81 MG TABLET PO (08:42)
[2020-03-02] MEDS: AMLODIPINE 5 MG TABLET PO (08:42)
--- NOTE | 2020-03-02 11:23 | CM.IDA ---
Initial DCP Assessment Note Patient is a 79 yo female, resident of [facility]. Patient presents after a spell of fogginess and feeling disoriented, stroke r/o and w/u. Echo pending today PCP: Christina Saeed Payer: Derek GUZMAN Reviewed chart. met w/patient and introduced role. Patient is active and indp at baseline, she and spouse live on [facility]. Patient is expecting to return home today and Dr Turk has indicated this is likely. Close outpt f/u recommended. Patient feels confident about her return home w/spouse, explains to this [employer] she has 4 children and 6 grandchildren, all supportive, although living across the . One of her kids lives in [place]. No needs expected from this [employer], will follow closely in case this changes today. JOAQUIM Foy Discharge Planning/Care Management CM Discharge Assessment Start: 03/02/20 11:22 Freq: Status: Active Protocol: Document 03/02/20 11:22 ENRIQUE (Rec: 03/02/20 11:23 ENRIQUE [id number]) Discharge Planning Assessment Assigned Molding Sander JOAQUIM Davila DPOA/Assigned Designee Name Mike Hernandez, spouse Contact Information [phone] Advance Directives? No History Provided By Patient,Medical Record Prior Living Arrangements House Household Members spouse Type of transporation used prior to Drives own vehicle admit Independent with ADL's Yes Is patient alert and oriented? Yes Barriers to Discharge No Transportation Arrangement Spouse Referrals Initiated None needed
--- NOTE | 2020-03-02 11:52 | OT.IP.EVAL ---
Past Medical History (Last Reviewed 03/01/20 @ 12:31 by Lorenza Maradiaga MD) Aplastic anemia (Acute) Asthma (Acute) Hypothyroidism (acquired) (Acute) Occupational Therapy Inpatient Evaluation/Re-Eval . M1 PT/OT-IP Prior Functional Status Start: 03/02/20 12:22 Freq: NEEDED Status: Active Protocol: Document 03/02/20 11:05 [facility] (Rec: 03/02/20 12:41 [facility] [id number]) Medical Review Prior Functional Status Medical History Reviewed Yes Diet/Fluid Consistency Regular Communication no deficits noted. able to make needs known Mobility and Gait independent with mobility. uses walking sticks for outdoor walking on uneven surface sometimes. She does have some R knee pain d/t OA Activities of Daily Living and IADL's independent for all ADLs and some IADALs. Pt hires a girl to assist in house clean and gardening work once / week. Pt states does her own medications and drives. Social History Household Members spouse Living Arrangements House Number of Floors (Floors) Two Floors Number of Stairs To Enter/Railing? 2 XIOMARA without rail for front and back entrance 11 steps to 2nd floor with 2 rails pt lives on 2nd floor with bathroom and bedroom access Home Environment Standard Height Toilet,Walk in Shower Additional Social History Comment PMH of ADD, anxiety, hypothyroidism, aplastic anemia in remission who presented to the emergency room after an episode of disorientation. Pt lives in [facility] with . Pt has 4 children and they live in [facility] . M2 OT-IP Current Condition Start: 03/02/20 12:22 Freq: Status: Active Protocol: Document 03/02/20 11:05 [facility] (Rec: 03/02/20 12:41 [facility] [id number]) Occupational Therapy Current Condition Current Condition Evaluation Date 03/02/20 Treatment Diagnosis Possible TIA Diagnosis Onset Date 03/01/20 M3 OT- IP Subjective and Pain Start: 03/02/20 12:22 Freq: Status: Active Protocol: Document 03/02/20 11:05 [facility] (Rec: 03/02/20 12:41 [facility] [id number]) OT- Subjective Occupational Therapy Visit Type Type Initial Evaluation Visit Start Time 11:05 Visit Stop Time 11:52 Total Visit Minutes 47 Occupational Therapy Visit Comments Patient Comments Pt wiling to do OT eval and also present in the room. Patient/Caregiver Goals To go home. OT Pain Assessment Pain When Pain Assessed At Rest Pain Present Pain Present Denied Pain M4 OT- IP ADL's Start: 03/02/20 12:22 Freq: Status: Active Protocol: Document 03/02/20 11:05 [facility] (Rec: 03/02/20 12:41 [facility] [id number]) OT ADV-Btwn-Mkwbnau Comments OT Self-Feeding Comments NOt at mealtime. OT ADL-Grooming Comments OT Grooming Comments Pt states already did on her own. OT ADL-Dressing Comments OT Dressing Comments Pt wanting to get Echo done prior to getting dressed. OT ADL-Toileting Comments OT Toileting Comments Pt states has been using the toilet on her own in the room independently. OT ADL-Bathing Comments OT Bathing Comments Pt wanting to shower at home. Suggested to have there initially and to consider getting a shower chair. M5 OT- IP IADL's Start: 03/02/20 12:22 Freq: Status: Active Protocol: Document 03/02/20 11:05 [facility] (Rec: 03/02/20 12:41 [facility] [id number]) OT-Instrumental Activities of Daily Living Home Safety Awareness Ability to Problem Solve Emergency Unable to Problem Solve Situations Home Safety Comments Pt increased time to ID 911 in case of emergency and know what to do is case the toilet was flooding. Medication Management Medication Management Comments Suggested to have provide supervision initially. Money Management Money Management Comments does all the finances. Meal Preparation Meal Preparation Caregiver Provides Assist Swimming Teacher Swimming Teacher Caregiver Provides Assist Driving Driving Comments Suggested to have pt's present with her initially. M6 OT- IP Functional Cognition Start: 03/02/20 12:22 Freq: Status: Active Protocol: Document 03/02/20 11:05 [facility] (Rec: 03/02/20 12:41 [facility] [id number]) Cognitive Factors Limiting Selfcare Function Cognitive Ability Level of Alertness Alert Patient Orientation Name,Age,Birthday,Month,Date, Year,Day of Week,Place, Situation Attention Span Ability Capable of Focused Attention, Capable of Sustained Attention Ability to Follow Commands Able to Follow Multi-Step Commands Memory Description Short Term Impaired Safety Awareness No Deficits Noted Problem Solving Ability Needs Assist to Identify Solutions Executive Function Ability Unable to Remember Details Cognitive Tests SLUMS Pt scored 25/30 which normal score for pt's level of education is 27/30. Pt not able to subtract a two digit number word problem, able to recall 4/5 words after time passed, and able to answer 3/4 questions right after a paragraph read. Cognitive Comments Cognitive Assessment Comments Pt scored 94 seconds on [place] Making Part B which implies that pt has mild deficits with visual attention, task switching, speed of processing , executive thinking, and mental flexibility. OT- Vision and Hearing OT- Hearing Assessment OT- Hearing Assessment WFL OT- Vision Assessment Visual Acuity Glasses For Reading M7 OT- IP Mobility and Balance Start: 03/02/20 12:22 Freq: Status: Active Protocol: Document 03/02/20 11:05 [facility] (Rec: 03/02/20 12:41 [facility] [id number]) OT- Bed Mobility Assessment Rolling Type of Rolling Roll to Left Level of Assistance Independent Supine to Sit Supine to Sit Assist Independent Sit to Supine Sit to Supine Assist Independent OT-Transfer Assessment Sit to and From Stand Sit to and from Stand Independent Transfers Transfer Ability Independent Devices Transfer Assistive Devices None Comments Mobility Comments Pt able to independently mobilize in the room on her own with good safety. OT- Balance Assessment Sitting Balance and Reactions Static Sitting Balance Ability Normal Dynamic Sitting Balance Ability Normal Standing Balance and Reactions Static Standing Balance Ability Normal Dynamic Standing Balance Ability Good M8 OT- IP Objective Assessments Start: 03/02/20 12:22 Freq: Status: Active Protocol: Document 03/02/20 11:05 [facility] (Rec: 03/02/20 12:41 [facility] [id number]) OT Gross Range of Motion Upper Extremity Range of Motion Assessment Left Impaired ROM Impairments Pt's left arm impaired shoulder flexion 0-90 in supine due to history of rotator cuff tear. Able to show pt gentle stretches to do in supine and to also do gentle massage to her internal rotators. At the end of the session pt able to do shoulder flexion 0-95 in supine. OT Strength Upper Extremity Strength Assessment Left Impaired OT-Muscle Tone Assessment Muscle Tone WNL Yes M9 OT- IP Assessment and Plan Start: 03/02/20 12:22 Freq: Status: Active Protocol: Document 03/02/20 11:05 [facility] (Rec: 03/02/20 12:41 [facility] [id number]) OT Summary Assessment and Plan Potential Rehabilitation Potential Excellent Analytic Complexity at Evaluation Low Summary OT Impairments Range of Motion Progress Towards Goals Progressing Toward Goals Assessment Summary Pt low complexity and her due to possible TIA. Pt noted to have mild cognitive deficits mainly for short term memory needs. Pt has a supportive that will provide her assist as needed. Pt educated on gentle stretches for her left arm to help increase for AROM to increase ease for ADL and IADl needs. Pt looking to go home today after ECHO. Goals OT-Other Goals Pt to be independent for self stretching for left arm. Days to Meet Goals 1 Frequency of Treatment Frequency Of Treatment Once a Day Treatment Plan OT Treatment Plan Patient/Family Education, Discharge Planning Discharge Recommendations OT Discharge Recommendations Home with Assistance Home Equipment Needs Possible shower chair. Transportation Needs at Discharge Private Vehicle
--- NOTE | 2020-03-02 11:52 | PT.IIE ---
Medical History (Last Reviewed 03/01/20 @ 12:31 by Lorenza Maradiaga MD) Aplastic anemia (Acute) Asthma (Acute) Hypothyroidism (acquired) (Acute) Physical Therapy Inpatient Evaluation/Re-Eval M1 PT/OT-IP Prior Functional Status Start: 03/02/20 08:25 Freq: NEEDED Status: Active Protocol: Document 03/02/20 11:27 (Rec: 03/02/20 11:52 [id number]) Medical Review Prior Functional Status Medical History Reviewed Yes Diet/Fluid Consistency Regular Communication no deficits noted. able to make needs known Mobility and Gait independent with mobility. uses walking sticks for outdoor walking on uneven surface sometimes. She does have some R knee pain d/t OA Activities of Daily Living and IADL's independent for all ADLs and some IADALs. Pt hires a girl to assist in house clean and gardening work once / week. Social History Household Members spouse Living Arrangements House Number of Floors (Floors) Two Floors Number of Stairs To Enter/Railing? 2 XIOMARA without rail for front and back entrance 11 steps to 2nd floor with 2 rails pt lives on 2nd floor with bathroom and bedroom access Home Environment Standard Height Toilet,Walk in Shower Additional Social History Comment PMH of ADD, anxiety, hypothyroidism, aplastic anemia in remission who presented to the emergency room after an episode of disorientation. Pt lives in [place] with . Pt has 4 children and they live in [facility] . M2 PT-IP Current Condition Start: 03/02/20 08:25 Freq: NEEDED Status: Active Protocol: Document 03/02/20 11:27 (Rec: 03/02/20 11:52 [id number]) Physical Therapy Current Condition Current Condition Evaluation Date 03/02/20 Treatment Diagnosis possible TIA, disorientation Onset Date 03/01/20 Weight Bearing Status Weight Bearing Status Full Weight Bearing M3 PT-IP Subjective Start: 03/02/20 08:25 Freq: NEEDED Status: Active Protocol: Document 03/02/20 11:27 (Rec: 03/02/20 11:52 [id number]) Subjective Physical Therapy Visit Type Type Initial Evaluation Visit Start Time 10:07 Visit Stop Time 10:35 Total Visit Minutes 28 Notes doppler ultrasound shows Less than 50% right carotid bulb/ proximal internal carotid artery stenosis Number of JANITOR CLEANER Visits 0 Physical Therapy Visit Comments Patient Comments Im doing really well and i feel normal Patient Goals To return when she is medically stable. Therapy Pain Assessment Pain Present Pain Present Denied Pain M4 PT-IP Mobility and Gait Start: 03/02/20 08:25 Freq: NEEDED Status: Active Protocol: Document 03/02/20 11:27 (Rec: 03/02/20 11:52 [id number]) PT-Transfer Assessment Sit to and From Stand Sit to and from Stand Standby Assistance,Use of Upper Extremities Equipment Transfer Assistive Device None Orthotic/Prosthetic Devices or Brace: No Transfers Transfer Destination Bed,Chair Transfer Technique Stand Step Pivot Transfer Ability Level of Assist Standby Assistance Comments Mobility Comments Pt was in chair upon PT arrival. AxOx 4 denies any pain and discomfort. This PT performed ROM, strength, neurological assessment and no deficits noted. Pt then stood up withut using UEs to push off SBA. She amb half of the AC unit with SBA without AD. She also completed stair climbing safely then returned back to her room and sat in chair. Call light placed within reach. Gait Assessment Gait Gait Assistance Required: Standby Assistance Distance (Feet) 280 Able to Maintain Weight Bearing Status Yes During Gait Assistive Devices Assistive Device None Orthotic/Prosthetic Devices or Brace: No Comments Gait Comments no deficits noted. see mobility comments Stair Climbing Assessment Evaluation Level of Assist On Stairs Standby Assistance Devices Stair Climbing Assistive Devices None,Left Railing Technique/Endurance Stair Climbing Direction Ascend Stair Climbing Technique Step Over Step,Step to Step Comments Stair Climbing Comments pt completed stair climbing with SBA. Step over pattern without rails for ascend then descend with step to pattern with L rail PT-Balance Assessment Sitting Balance and Reactions Static Sitting Balance Ability Normal Dynamic Sitting Balance Ability Normal Standing Balance and Reactions Static Standing Balance Ability Normal Dynamic Standing Balance Ability Normal Device Used none M5 PT-IP Objective Assessments Start: 03/02/20 08:25 Freq: NEEDED Status: Active Protocol: Document 03/02/20 11:27 (Rec: 03/02/20 11:52 [id number]) Orientation Orientation/Cognition Level of Alertness Alert Orientation Name,Age,Birthday,Month,Date, Year,Day of Week,Place, Situation Language Function Ability No Deficits Noted Safety Awareness Understands Safety Issues Memory Description No Deficits Noted Gross Range of Motion Upper Extremity ROM Assessment Left Impaired Impairments unable to reach >90 degrees d/ t torn RTC Lower Extremity ROM Assessment Within Functional Limits Strength Upper Extremity Strength Assessment Left Impaired Shoulder 3-/5 Elbow 4+/5 Wrist 5/5 Lower Extremity Strength Assessment Within Functional Limits Comments Strength Comments unable to reach >90 degrees d/ t torn RTC Coordination Assessment Gross Coordination Gross Coordination WNL Assessment Finger to Nose Test Normal Performance Pronation/Supination Test Normal Performance Foot Tapping Test Normal Performance Heel on Duncan Test Normal Performance Sensation Assessment Sensation Gross Sensation WNL Light Touch Intact Proprioception (Position) Intact Muscle Tone Muscle Tone WNL Yes M6 PT-IP Treatment Start: 03/02/20 08:25 Freq: NEEDED Status: Active Protocol: Document 03/02/20 11:27 (Rec: 03/02/20 11:52 [id number]) Physical Therapy Treatment Education Education Provided Safety M7 PT-IP Assessment and Plan Start: 03/02/20 08:25 Freq: NEEDED Status: Active Protocol: Document 03/02/20 11:27 (Rec: 03/02/20 11:52 [id number]) PT Summary Assessment and Plan Potential Rehabilitation Potential Excellent Status of Condition at Evaluation Stable Summary Progress Towards Goals Safe For Discharge Assessment Summary This is an evaluation only for this 79yo female admitted to ER for possible TIA with an episode of disorientation. Pt is completely independent without using AD at baseline. Upon assessment, pt does not show any neurological deficits and so does strength and ROM. Pt is at baseline at this point and no need for therapy. Expect pt to be d/c home with family. Frequency of Treatment Frequency Of Treatment Discharge Recommendations To Nursing Amount of Assist Needed Standby Assistance Discharge Recommendations PT Discharge Recommendations Home Transportation Needs at Discharge Private Vehicle
--- NOTE | 2020-03-02 12:50 | PM.DS.1 ---
History of Present Illness History of Present Illness Date Patient Seen: 03/02/20 Time Patient Seen: 12:50 Chief complaint: Feeling Disoriented and Foggy Narrative: Andria Hernandez is a 79 year old female with PMH of ADD, anxiety, hypothyroidism, aplastic anemia in remission who presented to the emergency room after an episode of disorientation this morning on her way from home on [facility] to run some errands in [place]. On the [employer] boat ride over she could not remember why she was on the [employer] or what she was doing. She was able to call a relative in town who was a prior nurse who recommended that she come to the emergency room to be evaluated. Symptoms lasted for about 20-30 minutes. She stated the relative was able to understand her speech, and the patient had no trouble with word finding. She denies any weakness, facial droop, slurred speech, numbness, tingling. She denies any chest pain, palpitations, shortness of breath, lower extremity edema, abdominal pain, nausea, vomiting, chest pressure, left arm pain or numbness. In the emergency room, patient was hypertensive but remainder vital signs were unremarkable. Laboratory evaluation revealed a mild thrombocytopenia with a platelet count of 137. Coagulation studies were unremarkable. Chemistries were unremarkable. Urine drug screen was negative. Head CT did show old lacunar infarcts bilaterally, and chronic microvascular ischemic changes. MRI was performed before her arrival to the floor and was negative for acute infarcts but did confirm old lacunar infarcts bilaterally. Discharge Providers Provider Date of admission: 03/01/20 15:54 Discharge Date: 03/02/20 Primary care physician: Christina Saeed MD Consults: 03/01/20 18:43 Consult to Occupational Therapy Evaluate & Treat Comment: Physician Instructions: Evaluate and treat Consult to Physical Therapy Evaluate & Treat Comment: Physician Instructions: Evaluate and Treat Discharge provider: Olaf Turk DO Summary Hospital Course Discharge Diagnosis: please see hospital course by problem list noted below Hospital Course: Andria Hernandez is a 79 year old female with PMH of ADD, anxiety, hypothyroidism, aplastic anemia in remission who presented to the emergency room after an episode of disorientation this morning on her way from home on [facility] to run some errands in [place]. 1. Disorientation, resolved -patient presented with an episode of disorientation lasting for approximately half an hour. She was mildly hypertensive and MRI did not show an acute infarct but does show old infarcts. Is possible she had a TIA, however I think this is lower in likelihood. Given CT and MRI findings of prior lacunar infarcts bilaterally this could be atrial fibrillation related. Further differentials include a panic attack given her history of anxiety, ineffective dosing of her ADD medications, or given her age and bilateral infarcts early symptoms of dementia. Further could be symptomatic hypertension or hypertensive emergency given admission SBP of >180 although she was not symptomatic when she arrived in the ER. -No events on telemetry and Echocardiogram was unremarkable. Does show a dilated atria would recommend outpatient holter to monitor for possible atrial fibrillation. -A1c 5.6%, TC 222, LDL 109, HDL 101, TG 62. TSH 5.7 with normal free t4. -PT/OT evaluations appreciated. 2. History of CVA - MRI findings as noted above -given bilateral findings there is some concern for atrial fibrillation. Recommend a Holter monitor as an outpatient. -started low-dose aspirin and Lipitor -initial imaging did not include vascular evaluation. Ordered her for a carotid Doppler ultrasound which did not show significant vascular stenoses. 3. ADD - recommend outpatient follow up with her psychiatrist. 4. Anxiety - continued home medications 5. Hypothyroidism - continued home levothyroxine 112 mcg. TSH as noted above. Exam Vital Signs (past 8 hours): - 03/02/20 07:00 03/02/20 07:45 03/02/20 09:00 Temperature 98.4 F Pulse Rate 66 Respiratory Rate 16 Blood Pressure 151/70 H 157/80 H Pulse Oximetry 96 98 03/02/20 09:23 03/02/20 11:29 Temperature 98.4 F Pulse Rate 65 Respiratory Rate 16 Blood Pressure 137/85 144/82 H Pulse Oximetry 98 Oxygen Delivery Method Room Air Oxygen Flow Rate 0 Narrative Exam Narrative: GENERAL APPEARANCE: Well developed, well nourished, mildly anxious constantly picking at her nails and fidgeting her hands or folding and unfolding a napkin. SKIN: Inspection of the skin reveals no rashes, ulcerations or petechiae. HEENT: Normocephalic atraumatic, extraocular muscles are intact, oropharynx is clear and mucous membranes are moist, neck is supple without adenopathy NECK: Supple and symmetric. There was no thyroid enlargement, and no tenderness, or masses were felt. CHEST: Normal AP diameter and normal contour without any kyphoscoliosis. LUNGS: Auscultation of the lungs revealed no wheezes, rhonchi, or rales. CARDIOVASCULAR: There was a regular rate and rhythm without any murmurs, gallops, rubs. Peripheral pulses were 2+ and symmetric. ABDOMEN: Soft and nontender with normal bowel sounds. No ascites was noted. MUSCULOSKELETAL: There was no tenderness or effusions noted. Muscle strength and tone were normal. EXTREMITIES: No cyanosis, clubbing or edema. NEUROLOGIC: Alert and oriented x 3. Normal affect. Gait was normal. Strength is +5/5 in the Upper Extremities and Lower Extremities Bilaterally. Sensation to touch was normal. No dysmetria. CN2-12 grossly intact bilaterally. Objective Labs Result Diagrams: 03/02/20 05:24 03/02/20 05:24 Labs: Laboratory Results - last 24 hr 03/01/20 03/01/20 03/01/20 12:30 12:30 12:30 WBC RBC Hgb Hct MCV MCH MCHC RDW Plt Count Neut % (Auto) Lymph % (Auto) [place] % (Auto) Eos % (Auto) Baso % (Auto) Neut # (Auto) Lymph # (Auto) [place] # (Auto) Eos # (Auto) Baso # (Auto) APTT 36 Sodium 139 Potassium 4.1 Chloride 103 Carbon Dioxide 26 BUN 13 Creatinine 0.64 Estimated GFR > 60.0 BUN/Creatinine Ratio 20.3 Glucose 108 Hemoglobin A1c Calcium 9.5 Magnesium Total Bilirubin 1.3 Conjugated Bilirubin Unconjugated Bilirubin AST 38 H ALT 18 Alkaline Phosphatase 76 Troponin I < 0.012 Total Protein 8.1 Albumin 4.6 Globulin 3.5 Albumin/Globulin Ratio 1.3 Triglycerides Cholesterol LDL Cholesterol, Calc HDL Cholesterol TSH Free T4 Urine Color Urine Appearance Urine pH Ur Specific Commodore Urine Protein Urine Glucose (UA) Urine Ketones Urine Occult Blood Urine Nitrate Urine Bilirubin Urine Urobilinogen Ur Leukocyte Esterase Urine RBC Urine WBC Ur Squamous Epith Cells Urine Bacteria Ur Culture Indicated? U Opiates 300ng/mL cut Ur Oxycodone Screen Urine Methadone Screen Ur Barbiturates Screen U Tricyclic Antidepress Ur Phencyclidine Scrn Ur Amphetamines Screen U Methamphetamines Scrn Ur MDMA Scrn (Ecstasy) U Benzodiazepines Scrn Urine Cocaine Screen U Marijuana (THC) Screen COVID-19 PCR 09/03/01/20 03/02/20 15:06 15:10 05:24 WBC 2.7 L RBC 4.34 Hgb 12.7 Hct 38.1 MCV 87.8 MCH 29.2 MCHC 33.3 RDW 16.2 H Plt Count 118 L Neut % (Auto) 37.5 L Lymph % (Auto) 44.2 H [place] % (Auto) 16.2 H Eos % (Auto) 1.9 L Baso % (Auto) 0.2 Neut # (Auto) 1000 L Lymph # (Auto) 1200 [place] # (Auto) 400 Eos # (Auto) 100 Baso # (Auto) 0 APTT Sodium Potassium Chloride Carbon Dioxide BUN Creatinine Estimated GFR BUN/Creatinine Ratio Glucose Hemoglobin A1c Calcium Magnesium Total Bilirubin Conjugated Bilirubin Unconjugated Bilirubin AST ALT Alkaline Phosphatase Troponin I Total Protein Albumin Globulin Albumin/Globulin Ratio Triglycerides Cholesterol LDL Cholesterol, Calc HDL Cholesterol TSH Free T4 Urine Color Urine Appearance Urine pH Ur Specific Commodore Urine Protein Urine Glucose (UA) Urine Ketones Urine Occult Blood Urine Nitrate Urine Bilirubin Urine Urobilinogen Ur Leukocyte Esterase Urine RBC Urine WBC Ur Squamous Epith Cells Urine Bacteria Ur Culture Indicated? U Opiates 300ng/mL cut Negative Ur Oxycodone Screen Negative Urine Methadone Screen Negative Ur Barbiturates Screen Negative U Tricyclic Antidepress Negative Ur Phencyclidine Scrn Negative Ur Amphetamines Screen Negative U Methamphetamines Scrn Negative Ur MDMA Scrn (Ecstasy) Negative U Benzodiazepines Scrn Negative Urine Cocaine Screen Negative U Marijuana (THC) Screen Negative COVID-19 PCR Negative 03/02/20 03/02/20 03/02/20 05:24 05:24 05:24 WBC RBC Hgb Hct MCV MCH MCHC RDW Plt Count Neut % (Auto) Lymph % (Auto) [place] % (Auto) Eos % (Auto) Baso % (Auto) Neut # (Auto) Lymph # (Auto) [place] # (Auto) Eos # (Auto) Baso # (Auto) APTT Sodium 140 Potassium 4.0 Chloride 106 Carbon Dioxide 27 BUN 14 Creatinine 0.66 Estimated GFR > 60.0 BUN/Creatinine Ratio 21.2 Glucose 94 Hemoglobin A1c 5.6 Calcium 9.1 Magnesium 2.1 Total Bilirubin 0.8 Conjugated Bilirubin 0.0 Unconjugated Bilirubin 0.7 AST 30 ALT 14 Alkaline Phosphatase 56 Troponin I Total Protein 6.6 Albumin 3.8 Globulin 2.8 Albumin/Globulin Ratio 1.4 Triglycerides 62 Cholesterol 222 H LDL Cholesterol, Calc 109 H HDL Cholesterol 101 H TSH 5.70 H Free T4 1.17 Urine Color Urine Appearance Urine pH Ur Specific Commodore Urine Protein Urine Glucose (UA) Urine Ketones Urine Occult Blood Urine Nitrate Urine Bilirubin Urine Urobilinogen Ur Leukocyte Esterase Urine RBC Urine WBC Ur Squamous Epith Cells Urine Bacteria Ur Culture Indicated? U Opiates 300ng/mL cut Ur Oxycodone Screen Urine Methadone Screen Ur Barbiturates Screen U Tricyclic Antidepress Ur Phencyclidine Scrn Ur Amphetamines Screen U Methamphetamines Scrn Ur MDMA Scrn (Ecstasy) U Benzodiazepines Scrn Urine Cocaine Screen U Marijuana (THC) Screen COVID-19 PCR 03/02/20 06:30 WBC RBC Hgb Hct MCV MCH MCHC RDW Plt Count Neut % (Auto) Lymph % (Auto) [place] % (Auto) Eos % (Auto) Baso % (Auto) Neut # (Auto) Lymph # (Auto) [place] # (Auto) Eos # (Auto) Baso # (Auto) APTT Sodium Potassium Chloride Carbon Dioxide BUN Creatinine Estimated GFR BUN/Creatinine Ratio Glucose Hemoglobin A1c Calcium Magnesium Total Bilirubin Conjugated Bilirubin Unconjugated Bilirubin AST ALT Alkaline Phosphatase Troponin I Total Protein Albumin Globulin Albumin/Globulin Ratio Triglycerides Cholesterol LDL Cholesterol, Calc HDL Cholesterol TSH Free T4 Urine Color Yellow Urine Appearance Clear Urine pH 7.0 Ur Specific Commodore 1.020 Urine Protein Negative Urine Glucose (UA) Negative Urine Ketones Negative Urine Occult Blood Negative Urine Nitrate Negative Urine Bilirubin Negative Urine Urobilinogen 0.2 Ur Leukocyte Esterase Negative Urine RBC None seen Urine WBC 0-1/hpf Ur Squamous Epith Cells 0-1 /hpf Urine Bacteria Moderate (10-30) H Ur Culture Indicated? Cult not indicated U Opiates 300ng/mL cut Ur Oxycodone Screen Urine Methadone Screen Ur Barbiturates Screen U Tricyclic Antidepress Ur Phencyclidine Scrn Ur Amphetamines Screen U Methamphetamines Scrn Ur MDMA Scrn (Ecstasy) U Benzodiazepines Scrn Urine Cocaine Screen U Marijuana (THC) Screen COVID-19 PCR Discharge Plan Discharge Plan Patient Disposition: Home Discharge comment: You were admitted to the hospital after an episode of disorientation. It is unclear what exactly the cause of this was, but includes TIA, anxiety, a very high blood pressure, or ADD. You also had some prior strokes which appear to have been asymptomatic on your CT and MRI imaging. This combined with some echocardiogram findings may indicate atrial fibrillation. I recommend you get a holter monitor to look for possible atrial fibrillation from your PCP. Discharge orders & Medications Prescriptions: New amlodipine 5 mg tablet 5 mg PO DAILY 30 Days Qty: 30 RF: 0 aspirin 81 mg Tablet,Delayed Release (Dr/Ec) 81 mg PO DAILY 30 Days Qty: 30 RF: 0 atorvastatin 40 mg tablet 40 mg PO BEDTIME 30 Days Qty: 30 RF: 0 Continued fluticasone propion-salmeterol [Advair Diskus] 250-50 mcg/dose Blister With Device 1 inh INHALATION BID RF: 0 ascorbic acid (vitamin C) 1,000 mg Tablet 500 mg PO DAILY RF: 0 dextroamphetamine 10 mg Tablet 5 mg PO DAILY RF: 0 lorazepam 0.5 mg Tablet 0.5 mg PO BID PRN (Reason: Anxiety) RF: 0 albuterol sulfate [Ventolin HFA] 90 mcg/actuation Hfa Aerosol Inhaler 2 puff INHALATION Q4-6H PRN (Reason: sob) RF: 0 levothyroxine 112 mcg Tablet 112 mcg PO DAILY RF: 0 Azo Cranberry + Probiotic 250-30-50 [id number] Tablet 1 tab PO DAILY RF: 0 Follow up/Referrals: Christina Saeed MD [Primary Care Provider] - Discharge Health Status Health Concerns: old CVA possible atrial fibrillation Diet/Activity/Treatments Diet: Diet as Tolerated Activity: As tolerated Visit Report/Discharge Packet Instructions: Transient Ischemic Attack, DI for High Blood Pressure, How to Prevent Falls, Atorvastatin, Amlodipine, How to Monitor Your Blood Pressure at Home Visit Report Forms: Patient Portal/API, Stroke Signs & Symptoms Discharge Data Primary Care Provider: Christina Saeed Attending Provider: Olaf Turk Admit Date/Time: 03/01/20 15:54 Discharges patient from system. Discharge Date/Time: 03/02/20 15:40 Quality VTE Deep Vein Thrombosis/Pulmonary Embolism Present on Admission: No
--- NOTE | 2020-03-02 13:49 | PC.NURSE ---
Addendum entered by Zari Palafox R.N. 03/02/20 15:40: Discharge summary packet reviewed with pt and her at bedside. Questions answered. Pt states they do not have a blood pressure machine at home. High recommend pt to invest in one to monitor BP at home. Instructions given related to this. Pt will make a follow up appointment with her PCP. Aware new prescritpions are needed to be picked up at [facility]. Pt left unit at 1540 via wheelchair in no distress with all belongings. pt's present to drive pt home. Addendum entered by Zari Palafox R.N. 03/02/20 14:37: Printed echo report given to Dr. Turk, who went and spoke with pt and her around 1430 bedside. Pt also given ECHO report as part of PHI release/authorization to pt. Addendum entered by Zari Palafox R.N. 03/02/20 13:58: spoke with medical records department at 1355, okay to give pt reports on scans listed below with PHI release form. Original Note: Day Shift- Pt A&OX4, asymptomatic, NIH score is 0. Pt denies pain, discomfort, shortness of breath, nausea, chest pain or pressure, Dizziness. Pt had 1 episode of word finding difficulty. Pt states she has been increasingly having since around 72 years of age. Pt's visiting in room and will be pt's ride home. Pt requested printouts of her MRI, CT scan, And carotid doppler study. Authorization to disclose/obtain protected health information form signed by pt. Pt would like to have copies to bring to her PCP and for her personal awareness.
--- NOTE | 2020-03-02 18:55 | DI.US.S_ITS ---
PROCEDURE: US CAROTID DOPPLER BI INDICATIONS: bilateral infarcts on brain imaging TECHNIQUE: Color and pulse Doppler interrogation was performed of both carotid systems, with image documentation and velocity measurements. COMPARISON: None. FINDINGS: Stenosis calculations are based on SRU (Society of Radiologists in Ultrasound) criteria. Right side: Brachial blood pressure: 157/80 mm Hg. Common carotid artery peak systolic velocity: 83 cm/sec. Internal carotid artery peak systolic velocity: 73 cm/sec. Internal carotid artery end diastolic velocity: 27 cm/sec. External carotid artery peak systolic velocity: 79 cm/sec. ICA/CCA peak systolic ratio: 0.9 . Beltran scale imaging description: There is plaque present in the region of the carotid bulb extending into the proximal internal carotid artery comment mild, not hemodynamically significant. Percent internal carotid artery stenosis: Less than 50% . Vertebral artery: Flow direction is antegrade. Left side: Brachial blood pressure: 137/85 mm Hg. Common carotid artery peak systolic velocity: 63 cm/sec. Internal carotid artery peak systolic velocity: 72 cm/sec. Internal carotid artery end diastolic velocity: 25 cm/sec. External carotid artery peak systolic velocity: 49 cm/sec. ICA/CCA peak systolic ratio: 1.2 . Beltran scale imaging description: Minimal plaque Percent internal carotid artery stenosis: None . Vertebral artery: Flow direction is antegrade. IMPRESSION: 1. Less than 50% right carotid bulb/proximal internal carotid artery stenosis. No hemodynamically significant stenosis identified. Dictated by: Jared Hrerera M.D. on 03/02/2020 at 10:45 Approved by: Jared Herrera M.D. on 03/02/2020 at 10:49
== END 2020-03-02 15:40 | disposition home or self-care (01) ==
LOC: ED 14:50 → AC 15:55
PROVIDERS: Admitting Provider Internal Medicine; Emergency Provider Emergency Medicine; PCP Internal Medicine; Referring Provider Emergency Medicine; Visit Provider Internal Medicine
DX: R41.0 Disorientation, unspecified (principal); E03.9 Hypothyroidism, unspecified; J45.909 Unspecified asthma, uncomplicated; Z86.73 Personal history of transient ischemic attack (TIA), and cerebral infarction without residual deficits; F98.8 Other specified behavioral and emotional disorders with onset usually occurring in childhood and adolescence; F41.9 Anxiety disorder, unspecified; Z11.59 Encounter for screening for other viral diseases
CPT/HCPCS: 36415; 70450; 70553; 80048; 80053; 80061; 80076; 80305; 81001; 81003; 82962; 83036; 83735; 84439; 84443; 84484; 85025; 85610; 85730; 87635; 93005; 93010; 93306; 93880; 96360; 96361; 97161; 97165; 97530; 99285; G0378

== ENCOUNTER 2020-09-03 09:42 | Emergency (ER) | payer MEDICARE, SELFPAY ==
[2020-03-01 18:49] VITALS: BMI 25.4
[2020-09-03 09:45] VITALS: BP 139/81; PULSE 78; RESP 16; TEMP 37; O2SAT 99
--- NOTE | 2020-09-03 10:12 | PC.NURSE ---
moving all extremities equally well. Denies neuro deficit.
--- NOTE | 2020-09-03 11:53 | ED.BACK ---
HPI - Back Pain/Injury General Chief Complaint: Back Pain/Injury Stated Complaint: pulled a muscle/ in back upper Time Seen by Provider: 09/03/20 11:53 Source: patient and family () Limitations: no limitations History of Present Illness HPI Narrative: Pleasant 79-year-old female comes in with complaint of left neck and upper thoracic back pain. Patient states 4 days ago she was doing vertigo exercises with her friend. She does not currently have vertigo she was just practicing these. She turned her head head to the side sharply after playing herself down quickly on the couch. She did not feel any pain at that time but that evening began to have increasing tightness and discomfort. This is continued. She feels that there spasm. She has tried massage, Tylenol 3 with minimal improvement. Last night she took a lorazepam and 2 tablets of Tylenol and was able to sleep well but still had discomfort this morning. She states she has not had similar issues in the past she has been very active recently helping to care for 2 toddler aged children. 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 Rotation of her head does make her symptoms worse. She did not have any additional trauma. She denies any fevers, chills. Patient has not had any prior neck issues in the past except for very mild symptoms. She does take medication for ADHD, hypothyroid and lorazepam as needed. She has also been alternating heat and cold. Related Data Home Medications Medication Instructions Recorded Confirmed Azo Cranberry + Probiotic 1 tab PO DAILY 03/01/20 03/01/20 albuterol sulfate [Ventolin HFA] 2 puff INHALATION Q4-6H PRN 03/01/20 03/01/20 ascorbic acid (vitamin C) 500 mg PO DAILY 03/01/20 03/01/20 dextroamphetamine 5 mg PO DAILY 03/01/20 03/01/20 fluticasone propion-salmeterol 1 inh INHALATION BID 03/01/20 03/01/20 [Advair Diskus] levothyroxine 112 mcg PO DAILY 03/01/20 03/01/20 lorazepam 0.5 mg PO BID PRN 03/01/20 03/01/20 Previous Rx's Medication Instructions Recorded lidocaine 1 patch TOPICAL DAILY PRN #15 ea 09/03/20 tramadol [Ultram] 50 mg PO Q6H PRN #14 tab 09/03/20 Allergies Allergy/AdvReac Type Severity Reaction Status Date / Time No Known Drug Allergies Allergy Verified 09/03/20 10:12 Review of Systems Review of Systems ROS Unobtainable: All systems reviewed & are unremarkable except as noted in HPI and below Patient History Medical History Aplastic anemia Asthma Hypothyroidism (acquired) Social History household members: spouse Smoking Status: Never smoker alcohol intake: current Smoking Status: Never smoker alcohol intake frequency: 0-2 drinks per day Substance Use Type: does not use and marijuana Exam Narrative Exam Narrative: GEN: well nourished, well appearing thin elderly female, alert and oriented x 3, patient appears to be in mild distress. HEENT: Atraumatic, pupils are equal round reactive to light, extraocular movements are intact, nares are clear. HEART: Regular rate and rhythm without murmur, clicks, rubs. LUNGS:Lungs clear to auscultation, no wheezes, rales, crackles, chest moves symmetrically ABD:bowel sounds normal, soft, non-tender, no guarding, rebound, rigidity, no masses noted, no hepatosplenomegaly MSCL: No vertebral tenderness in the cervical, thoracic or lumbar spine. Patient does have some tenderness and muscle spasm on the left lateral adjacent and over the upper left thoracic region. Patient does have some increased pain with rotation of the head but has full range of motion. She does not have any spasm appreciated. No bony tenderness appreciated. 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 Patient is neurovascularly intact. NEURO:CN 2-12 intact, sensation normal. SKIN: No rashes, erythema or skin changes noted. Initial Vital Signs Initial Vital Signs: Vital Signs Temperature 98.6 F 09/03/20 09:45 Pulse Rate 78 09/03/20 09:45 Respiratory Rate 16 09/03/20 09:45 Blood Pressure 139/81 09/03/20 09:45 Pulse Oximetry 99 09/03/20 09:45 Course Orders Ordered: Discontinued Medications Lidocaine (Lidocaine Patch 1 Each Adh..Patch) 1 each TOP NOW ONE Stop: 09/03/20 11:51 Last Admin: 09/03/20 11:55 Dose: 1 each Documented by: KALYANI Tramadol HCl (Tramadol 50 Mg Tablet) 50 mg PO NOW ONE Stop: 09/03/20 12:13 Last Admin: 09/03/20 12:15 Dose: 50 mg Documented by: KALYANI Vital Signs Vital signs: Vital Signs - 8 hr 09/03/20 12:46 Pulse Rate 85 Respiratory Rate 14 Blood Pressure 161/81 H Pulse Oximetry 100 MDM - Back Pain/Injury MDM Narrative Medical decision making narrative: This is a 79-year-old female who comes to the emergency department complaint of pulled muscle, neck pain. Patient also has some thoracic discomfort spasm. Patient did not have clear trauma but did attempt some vertigo exercises by twisting her neck after lying herself quickly down on the bed. Patient denies any significant symptoms in the past. She has tried some [id number] treatment with minimal improvement. Her examination is reassuring the department. Discussed. Plan for lidocaine patches, tramadol as needed on top of Tylenol for breakthrough pain and she has home lorazepam that she can use in the evening to help with spasm we discussed that if patient has any new neurologic changes she needs to return for evaluation. Discharge Plan Departure Patient Disposition: Home Clinical Impression: Cervical radiculopathy, Muscle spasms of neck Instructions: DI for Cervical Radiculopathy Activity Restrictions/Additional Instructions: Follow-up with your physician this week if you are not having any improvement in her symptoms. Call for an appointment on Saturday. You may continue Tylenol up to a 1000 mg every 8 hours as needed for pain. If this is inadequate for pain control you may take Ultram 1 tablet every 6 hours as needed. You may take your home lorazepam prior to sleep or every 8 hours if you are having significant muscle spasm. These medications can make you sleepy do not drive, perform hazardous activities or make any major decisions while taking them. Ultram will make you constipated to make sure you take a stool softener once daily until stools are regular and soft. Use lidocaine patches to the affected area as directed. 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 Prescriptions: New lidocaine 5 % adhesive patch,medicated 1 patch topical DAILY PRN (Reason: neck pain) Qty: 15 RF: 0 tramadol [Ultram] 50 mg tablet 50 mg PO Q6H PRN (Reason: pain) Qty: 14 RF: 0 No Action fluticasone propion-salmeterol [Advair Diskus] 250-50 mcg/dose Blister With Device 1 inh INHALATION BID RF: 0 ascorbic acid (vitamin C) 1,000 mg Tablet 500 mg PO DAILY RF: 0 dextroamphetamine 10 mg Tablet 5 mg PO DAILY RF: 0 lorazepam 0.5 mg Tablet 0.5 mg PO BID PRN (Reason: Anxiety) RF: 0 albuterol sulfate [Ventolin HFA] 90 mcg/actuation Hfa Aerosol Inhaler 2 puff INHALATION Q4-6H PRN (Reason: sob) RF: 0 levothyroxine 112 mcg Tablet 112 mcg PO DAILY RF: 0 Azo Cranberry + Probiotic 250-30-50 [id number] Tablet 1 tab PO DAILY RF: 0 Referrals: Christina Saeed MD [Primary Care Provider] -
[2020-09-03] MEDS: LIDOCAINE PATCH 1 EACH ADH..PATCH TOP (11:55)
[2020-09-03] MEDS: TRAMADOL 50 MG TABLET PO (12:15)
[2020-09-03 12:46] VITALS: BP 161/81; PULSE 85; RESP 14; O2SAT 100
== END 2020-09-03 12:48 | disposition home or self-care (01) ==
PROVIDERS: Emergency Provider Emergency Medicine; PCP Internal Medicine
DX: M54.12 Radiculopathy, cervical region (principal); M62.838 Other muscle spasm; X50.1XXA Overexertion from prolonged static or awkward postures, initial encounter
CPT/HCPCS: 99283

== ENCOUNTER 2020-10-10 08:02 | Emergency (ER) | payer MEDICARE, SELFPAY ==
[2020-03-01 18:49] VITALS: BMI 25.4
--- NOTE | 2020-10-10 08:39 | DI.RAD.S_ITS ---
PROCEDURE: XR ANKLE RT MIN 3V INDICATIONS: unknown swelling TECHNIQUE: 3 views of the ankle were acquired. COMPARISON: None. FINDINGS: Bones: No fractures or dislocations. Ankle mortise is normally aligned. No suspicious bony lesions. Soft tissues: There is a small tibiotalar joint effusion. There is periarticular soft tissue swelling most prominent medially. Achilles tendon appears intact. IMPRESSION: 1. No fracture or dislocation. Dictated by: Bonifacio Sloan M.D. on 10/10/2020 at 9:19 Approved by: Bonifacio Sloan M.D. on 10/10/2020 at 9:24
--- NOTE | 2020-10-10 09:41 | ED_ITS ---
HPI - Extremity Problem General Chief complaint: Extremity Problem,Nontraumatic Stated complaint: right ankle swelling and pain, started Saturday am Time Seen by Provider: 10/10/20 09:23 Source: patient Mode of arrival: Ambulatory Limitations: no limitations History of Present Illness HPI Narrative: Patient is a 79-year-old female here for evaluation of right ankle swelling. States that over the weekend she did do walking that she normally does not do but does not remember any specific trauma. Woke up this morning with swelling to her right ankle and redness to the inside of the ankle. She has no knee pain. She has only minimal discomfort with movement of her ankle. No fevers. Has not injured this ankle in the past. Related Data Home Medications Medication Instructions Recorded Confirmed Azo Cranberry + Probiotic 1 tab PO DAILY 03/01/20 03/01/20 albuterol sulfate [Ventolin HFA] 2 puff INHALATION Q4-6H PRN 03/01/20 03/01/20 ascorbic acid (vitamin C) 500 mg PO DAILY 03/01/20 03/01/20 dextroamphetamine 5 mg PO DAILY 03/01/20 03/01/20 fluticasone propion-salmeterol 1 inh INHALATION BID 03/01/20 03/01/20 [Advair Diskus] levothyroxine 112 mcg PO DAILY 03/01/20 03/01/20 lorazepam 0.5 mg PO BID PRN 03/01/20 03/01/20 Previous Rx's Medication Instructions Recorded lidocaine 1 patch TOPICAL DAILY PRN #15 ea 09/03/20 tramadol [Ultram] 50 mg PO Q6H PRN #14 tab 09/03/20 cephalexin 500 mg PO QID 7 Days #28 cap 10/10/20 Allergies Allergy/AdvReac Type Severity Reaction Status Date / Time No Known Drug Allergies Allergy Verified 09/03/20 10:12 Review of Systems Constitutional Constitutional: Denies fever(s) Cardiovascular Cardiovascular: Denies chest pain and Denies dyspnea Respiratory Respiratory: Denies dyspnea Gastrointestinal Gastrointestinal: Denies abdominal pain Musculoskeletal Comments: Right ankle swelling Integumentary/Breasts Comments: Redness to the inside of the right ankle Neurologic Neurologic: Denies behavioral changes Psychiatric Psychiatric: Denies behavioral changes Hematologic/Lymphatic On Anticoagulants: No Allergic/Immunologic Allergic/Immunologic: Denies urticaria Patient History Medical History (Updated 10/10/20 @ 09:45 by Marin Yu DO) Aplastic anemia Asthma Hypothyroidism (acquired) Social History household members: spouse Smoking Status: Never smoker alcohol intake: current Smoking Status: Never smoker alcohol intake frequency: 0-2 drinks per day Substance Use Type: does not use and marijuana Exam Const General: cooperative and comfortable Limitations: mental status not altered HENMN Head: normocephalic Cardio Pulses: dorsalis pedis present on the right Skin Other: Patient with an area of redness and slight warmth over the medial mal leolus. Does not extend into the midfoot. Neuro General: patient alert, patient awake and patient oriented x3 Cognition: normal cognition Speech: speech normal Sensory Exam: no sensory deficits noted Extrem Other: Patient has no knee tenderness. No proximal fibula tenderness. No tenderness of the Achilles tendon. Has swelling over the lateral medial malleolus but minimal discomfort. Her foot is unremarkable. Psych Appearance: grossly normal and well kempt Course Orders Ordered: ED Orders 10/10/20 08:39 XR ankle RT min 3V Stat MDM - Extremity (Nontraumatic) Imaging Data Extremity x-ray #1: Radiologist's Impression: [address] [id number] ReportSigned Patient: Andria Hernandez JMR#: [id number]: 3Acct:[id number]/Sex: 79 / FDate of Service: 10/10/20Loc: EDAccession Number: [id number] Procedure: XR ankle RT min 3V Ordering Provider: Marin Yu D.O. PROCEDURE: XR ANKLE RT MIN 3V INDICATIONS: unknown swelling TECHNIQUE: 3 views of the ankle were acquired. COMPARISON: None. FINDINGS: Bones: No fractures or dislocations. Ankle mortise is normally aligned. No suspicious bony lesions. Soft tissues: There is a small tibiotalar joint effusion. There is periarticular soft tissue swelling most prominent medially. Achilles tendon appears intact. IMPRESSION: 1. No fracture or dislocation. Dictated by: Bonifacio Sloan M.D. on 10/10/2020 at 9:19 Approved by: Bonifacio Sloan M.D. on 10/10/2020 at 9:24 MDM Narrative Medical decision making narrative: There were no fractures noted on the x-rays. She is neurovascularly intact. She does have swelling and I suspect that this is a inflammation. She does have redness over the medial malleolus. Is not consistent with gout. I have low suspicion for septic joint. There are no breaks in the skin however the redness and the warmth and does have some concern for cellulitis. Will give her prescription for antibiotics. She was instructed that if the redness worsens she should start taking this otherwise she should hold on taking this medication. We discussed elevation and icing. She was given return precautions. She expressed understanding and agreement. Discharge Plan Departure Patient Disposition: Home Clinical Impression: Swelling of joint, ankle, right Instructions: How To Perform RICE (Rest, Ice, Compress, Elevate) Activity Restrictions/Additional Instructions: I recommend that you hold on the prescription for antibiotics unless the redness starts to worsen like we discussed. There were no fractures on the x-ray see you can walk on your right foot as tolerated however I recommend that you take it easy for the next couple days and keep it elevated and iced. Take the rest of your medications as directed. Return to the emergency department for any new or worsening symptoms Prescriptions: New cephalexin 500 mg capsule 500 mg PO QID 7 Days Qty: 28 RF: 0 No Action fluticasone propion-salmeterol [Advair Diskus] 250-50 mcg/dose Blister With Device 1 inh INHALATION BID RF: 0 ascorbic acid (vitamin C) 1,000 mg Tablet 500 mg PO DAILY RF: 0 dextroamphetamine 10 mg Tablet 5 mg PO DAILY RF: 0 lorazepam 0.5 mg Tablet 0.5 mg PO BID PRN (Reason: Anxiety) RF: 0 albuterol sulfate [Ventolin HFA] 90 mcg/actuation Hfa Aerosol Inhaler 2 puff INHALATION Q4-6H PRN (Reason: sob) RF: 0 levothyroxine 112 mcg Tablet 112 mcg PO DAILY RF: 0 Azo Cranberry + Probiotic 250-30-50 [id number] Tablet 1 tab PO DAILY RF: 0 lidocaine 5 % adhesive patch,medicated 1 patch topical DAILY PRN (Reason: neck pain) Qty: 15 RF: 0 tramadol [Ultram] 50 mg tablet 50 mg PO Q6H PRN (Reason: pain) Qty: 14 RF: 0 Referrals: Christina Saeed MD [Primary Care Provider] -
[2020-10-10 10:00] VITALS: BP 137/69; PULSE 73; RESP 16; O2SAT 97
== END 2020-10-10 10:10 | disposition home or self-care (01) ==
PROVIDERS: Emergency Provider Emergency Medicine; PCP Internal Medicine
DX: M25.471 Effusion, right ankle (principal)
CPT/HCPCS: 73610; 99281; 99283

== ENCOUNTER 2020-10-12 18:00 | Emergency (ER) | payer MEDICARE, SELFPAY ==
[2020-03-01 18:49] VITALS: BMI 25.4
[2020-10-12 18:05] VITALS: BP 141/83; PULSE 84; RESP 14; TEMP 37; O2SAT 100
--- NOTE | 2020-10-12 18:20 | ED.RECABL ---
HPI - Recheck/Abnormal Lab/Rx General Chief Complaint: Recheck/Abnormal Lab/Rx Stated Complaint: right foot swelling, pain Time Seen by Provider: 10/12/20 18:20 Source: patient Mode of arrival: Ambulatory Limitations: no limitations History of Present Illness HPI narrative: 79-year-old female who I evaluated in the emergency department a couple days ago for some redness around her right ankle. At that time I sent her home with a prescription for antibiotics and inform her that if her symptoms worsen she had a start taking the antibiotics. She returns emergency department today having not started the antibiotics concerned as to whether not she should start them. She does not think that the symptoms have worsened. Related Data Home Medications Medication Instructions Recorded Confirmed Azo Cranberry + Probiotic 1 tab PO DAILY 03/01/20 03/01/20 albuterol sulfate [Ventolin HFA] 2 puff INHALATION Q4-6H PRN 03/01/20 03/01/20 ascorbic acid (vitamin C) 500 mg PO DAILY 03/01/20 03/01/20 dextroamphetamine 5 mg PO DAILY 03/01/20 03/01/20 fluticasone propion-salmeterol 1 inh INHALATION BID 03/01/20 03/01/20 [Advair Diskus] levothyroxine 112 mcg PO DAILY 03/01/20 03/01/20 lorazepam 0.5 mg PO BID PRN 03/01/20 03/01/20 Previous Rx's Medication Instructions Recorded lidocaine 1 patch TOPICAL DAILY PRN #15 ea 09/03/20 tramadol [Ultram] 50 mg PO Q6H PRN #14 tab 09/03/20 cephalexin 500 mg PO QID 7 Days #28 cap 10/10/20 Allergies Allergy/AdvReac Type Severity Reaction Status Date / Time No Known Drug Allergies Allergy Verified 10/12/20 18:07 Review of Systems Musculoskeletal Comments: No right ankle pain Integumentary/Breasts Comments: Redness around right ankle Neurologic Comments: No change in neurologic status Patient History Medical History Aplastic anemia Asthma Hypothyroidism (acquired) Social History household members: spouse Smoking Status: Never smoker alcohol intake: current Smoking Status: Never smoker alcohol intake frequency: 0-2 drinks per day Substance Use Type: does not use and marijuana Exam Initial Vital Signs Initial Vital Signs: Vital Signs Temperature 98.6 F 10/12/20 18:05 Pulse Rate 84 10/12/20 18:05 Respiratory Rate 14 10/12/20 18:05 Blood Pressure 141/83 H 10/12/20 18:05 Pulse Oximetry 100 10/12/20 18:05 Const General: cooperative and healthy appearing Cardio Pulses: dorsalis pedis present on the right Skin Other: Patient does have some redness around the medial malleolus of the right ankle however it does appear to be improved from a couple days ago. Extrem Other: No change in right foot exam from a couple days ago Psych Appearance: grossly normal and well kempt Course Vital Signs Vital signs: Vital Signs - 8 hr 10/12/20 18:05 Temperature 98.6 F Pulse Rate 84 Respiratory Rate 14 Blood Pressure 141/83 H Pulse Oximetry 100 MDM - Recheck/Abnormal Lab/Rx MDM Narrative Medical decision making narrative: She is well-appearing. The redness around her right ankle has improved from a couple days ago. Has not extended outside of the line that I viktor at that time. Provided reassurance to the patient and advised that she not start the antibiotics as things do seem to be improving. She was given return precautions. She expressed understanding and agreement. Discharge Plan Departure Patient Disposition: Home Clinical Impression: Encounter for wound re-check Activity Restrictions/Additional Instructions: Patient was given verbal discharge instructions. And she expressed understanding and agreement. Prescriptions: No Action fluticasone propion-salmeterol [Advair Diskus] 250-50 mcg/dose Blister With Device 1 inh INHALATION BID RF: 0 ascorbic acid (vitamin C) 1,000 mg Tablet 500 mg PO DAILY RF: 0 dextroamphetamine 10 mg Tablet 5 mg PO DAILY RF: 0 lorazepam 0.5 mg Tablet 0.5 mg PO BID PRN (Reason: Anxiety) RF: 0 albuterol sulfate [Ventolin HFA] 90 mcg/actuation Hfa Aerosol Inhaler 2 puff INHALATION Q4-6H PRN (Reason: sob) RF: 0 levothyroxine 112 mcg Tablet 112 mcg PO DAILY RF: 0 Azo Cranberry + Probiotic 250-30-50 [id number] Tablet 1 tab PO DAILY RF: 0 lidocaine 5 % adhesive patch,medicated 1 patch topical DAILY PRN (Reason: neck pain) Qty: 15 RF: 0 tramadol [Ultram] 50 mg tablet 50 mg PO Q6H PRN (Reason: pain) Qty: 14 RF: 0 cephalexin 500 mg capsule 500 mg PO QID 7 Days Qty: 28 RF: 0 Referrals: Christina Saeed MD [Primary Care Provider] -
== END 2020-10-12 18:20 | disposition home or self-care (01) ==
PROVIDERS: Emergency Provider Emergency Medicine; PCP Internal Medicine
DX: Z48.00 Encounter for change or removal of nonsurgical wound dressing (principal)
CPT/HCPCS: 99281

== ENCOUNTER → 2021-01-25 15:50 | Outpatient (CLI) | payer MEDICARE, SELFPAY ==
[2020-03-01 18:49] VITALS: BMI 25.4
[2021-01-25 17:19] LABS: Add Manual Diff / Slide Review NO; Basophils Absolute Auto 0 /uL (0-100); Eosinophils Absolute Auto 0 /uL (0-450); Eosinophils Percent Auto 0.9 % (2-4); Hematocrit 40.3 % (36-46); Hemoglobin 13.2 g/dL (12.0-16.0); Lymphocytes Absolute Auto 2000 /uL (1100-4500); Lymphocytes Percent Auto 38.1 % (25-40); Mean Corpuscular HGB Conc 32.8 % (30-36); Mean Corpuscular Hemoglobin 29.6 PG (26-34); Mean Corpuscular Volume 90.2 fL (80-100); Monocytes Absolute Auto 700 /uL (0-900); Monocytes Percent Auto 12.6 % (3-14); Neutrophils Absolute Auto 2600 /uL (1500-7000); Neutrophils Percent Auto 48.4 % (50-75); Platelet Count 141 X10^3/uL (150-400); Red Blood Cell Count 4.47 X10^6/uL (4.0-5.2); Red Cell Distribution Width 15.8 % (11.6-14.8); White Blood Cell Count 5.3 X10^3/uL (4.5-11.0)
[2021-01-25 17:48] LABS: Alanine Aminotransferase 19 IU/L (<35); Albumin 4.4 g/dL (3.5-5.0); Albumin Globulin Ratio 1.4 (1.0-2.8); Alkaline Phosphatase 67 U/L (38-126); Aspartate Aminotransferase 38 IU/L (14-36); BUN Creatinine Ratio 26.3 (6-22); Bilirubin Total 0.8 mg/dL (0.2-1.3); Blood Urea Nitrogen 15 mg/dL (7-17); Calcium 9.6 mg/dL (8.4-10.2); Carbon Dioxide 27 mmol/L (22-32); Chloride 103 mmol/L (98-107); Estimated Glomerular Filt Rate > 60.0 mL/min (>60); Globulin 3.1 g/dL (1.7-4.1); Glucose 91 mg/dL (80-110); HEMOLYSIS < 15 (0-50); Sodium 139 mmol/L (137-145); Total Protein 7.5 g/dL (6.3-8.2)
== END ==
PROVIDERS: Physician Assistant Surgical; PCP Internal Medicine; Referring Provider Orthopaedic Surgery; Visit Provider Orthopaedic Surgery
DX: Z98.890 Other specified postprocedural states (principal); Z87.81 Personal history of (healed) traumatic fracture; S52.571A Other intraarticular fracture of lower end of right radius, initial encounter for closed fracture; Z01.818 Encounter for other preprocedural examination
CPT/HCPCS: 36415; 80053; 85025

== ENCOUNTER 2021-11-01 10:16 | Emergency (ER) | payer MEDICARE, SELFPAY ==
[2021-10-31 15:08] VITALS: BMI 25.4
[2021-11-01 10:20] VITALS: BP 145/77; PULSE 84; RESP 16; TEMP 36.6; O2SAT 98; BMI 23.6
--- NOTE | 2021-11-01 10:41 | DI.RAD.S_ITS ---
PROCEDURE: XR ABDOMEN 1V INDICATIONS: constipation/diarrhea TECHNIQUE: One view of the abdomen acquired. COMPARISON: None. FINDINGS: Surgical changes and devices: None. Bowel: Bowel gas pattern is normal. Moderate stool is present. Soft tissues: No suspicious abdominal calcifications. Visualized solid organ contours appear normal in size. Partially visualized retrocardiac soft tissue density is present suggestive of hiatal hernia. Bones: No suspicious bony lesions. IMPRESSION: Moderate stool consistent with constipation. No obstruction. Dictated by: Claudette Ho M.D. on 11/01/2021 at 11:31 Approved by: Claudette Ho M.D. on 11/01/2021 at 11:32
--- NOTE | 2021-11-01 11:59 | ED_ITS ---
HPI - Nausea/Vomiting/Diarrhea General Chief complaint: Nausea/Vomiting/Diarrhea Stated complaint: Constipation for 2 weeks Time Seen by Provider: 11/01/21 10:33 Source: patient and family Mode of arrival: Ambulatory History of Present Illness HPI Narrative: The patient developed constipation about 6 months ago, she and her rinse and a with that time. She has no prior history of constipation. She has no prior history of bowel issues. She is on a beta-javier and a statin after having a TIA. She has started herself on fiber, she uses milk of magnesia as needed. She has explosive bowel movements with this combination. Oral intake is good. She drinks a lot a water, and has normal urine output. She has no abdominal pain with the symptoms. She has become worried about her persistent constipation, as a new issue. She has no fever or chills. She has currently no pain. She has never had a colonoscopy. She is no bleeding with her BMs. She wears a Depends due to occasional incontinence after starting the fiber. Related Data Home Medications Medication Instructions Recorded Confirmed albuterol sulfate 90 mcg/actuation 2 puff INHALATION Q4-6H PRN 03/01/20 03/01/20 aerosol inhaler (Ventolin HFA) ascorbic acid (vitamin C) 1,000 mg 500 mg PO DAILY 03/01/20 03/01/20 tablet cranberry [id number]-Y-[id number] coag 250 1 tab PO DAILY 03/01/20 03/01/20 mg-30 mg-50 million cell tablet (Azo Cranberry Plus Probiotic) dextroamphetamine sulfate 10 mg 5 mg PO DAILY 03/01/20 03/01/20 tablet fluticasone 250 mcg-salmeterol 50 1 inh INHALATION BID 03/01/20 03/01/20 mcg/dose blistr powdr for inhalation (Advair Diskus) levothyroxine 112 mcg tablet 112 mcg PO DAILY 03/01/20 03/01/20 lorazepam 0.5 mg tablet 0.5 mg PO BID PRN 03/01/20 03/01/20 Previous Rx's Medication Instructions Recorded lidocaine 5 % topical patch 1 patch TOPICAL DAILY PRN #15 ea 09/03/20 tramadol 50 mg tablet (Ultram) 50 mg PO Q6H PRN #14 tab 09/03/20 Allergies Allergy/AdvReac Type Severity Reaction Status Date / Time No Known Drug Allergies Allergy Verified 10/12/20 18:07 Review of Systems Constitutional Constitutional: Denies chills, Denies fatigue, Denies fever(s), Denies headache(s) and Denies malaise ENT Ears, Nose, Mouth, and Throat: Denies vertigo, Denies dizziness, Denies headache(s), Denies sinus pressure and Denies sore throat Cardiovascular Cardiovascular: Denies chest pain, Denies rapid heart rate, Denies edema and Denies dyspnea Respiratory Respiratory: Denies cough, Denies dyspnea and Denies wheezing Gastrointestinal Gastrointestinal: Reports as per HPI Genitourinary Genitourinary: Denies dysuria Musculoskeletal Musculoskeletal: Denies back pain Comments: Chronic right foot pain Integumentary/Breasts Skin/Breast: Denies rash Neurologic Neurologic: Denies confusion, Denies vertigo, Denies dizziness and Denies headache(s) Psychiatric Psychiatric: Denies confusion Endocrine Endocrine: Denies fatigue Hematologic/Lymphatic On Anticoagulants: No Allergic/Immunologic Allergic/Immunologic: Denies wheezing Patient History Medical History Aplastic anemia Asthma Hypothyroidism (acquired) Social History household members: spouse Smoking Status: Never smoker alcohol intake: current Smoking Status: Never smoker alcohol intake frequency: 0-2 drinks per day Alcohol type: beer and wine Substance Use Type: does not use Exam Initial Vital Signs Initial Vital Signs: Vital Signs Temperature 97.9 F 11/01/21 10:20 Pulse Rate 84 11/01/21 10:20 Respiratory Rate 16 11/01/21 10:20 Blood Pressure 145/77 H 11/01/21 10:20 Pulse Oximetry 98 11/01/21 10:20 Const General: cooperative, healthy appearing, comfortable, well developed and well groomed [facility] Head: normocephalic and atraumatic Resp Auscultation: clear to auscultation bilaterally Cardio Rate: regular rate Rhythm: regular rhythm Heart Sounds: S1 normal, S2 normal, no click, no murmurs and no rubs GI Inspection: normal to inspection Palpation: soft, no hepatosplenomegaly, No mass and No tender Auscultation: normal bowel sounds Back/Spine/Pelvis Back: No CVA tenderness Skin General: no rashes or lesions noted Neuro General: patient alert, patient awake, patient oriented x3 and no focal motor deficits Extrem General: normal to inspection, full ROM, no pedal edema and no calf tenderness Psych Appearance: grossly normal Course Orders Ordered: ED Orders 11/01/21 10:41 XR abdomen 1V Stat Vital Signs Vital signs: Vital Signs - 8 hr 11/01/21 10:20 Temperature 97.9 F Pulse Rate 84 Respiratory Rate 16 Blood Pressure 145/77 H Pulse Oximetry 98 MDM - Nausea/Vomiting/Diarrhea Imaging Data KUB x-ray: Radiologist's Impression: Constipation. No obstruction. Discharge Plan Departure Patient Disposition: Home Clinical Impression: Constipation by delayed colonic transit Instructions: DI for Dehydration -- Adult Activity Restrictions/Additional Instructions: Your x-ray shows continued constipation. Drink 1 bottle of magnesium citrate today. This should clear your bowel today. I do recommend you drink a lot of water. Walking will be beneficial, but do not stray far away from home until the effect of the magnesium citrate has resolved. Be sure you are on a high-fiber diet, and drink plenty of fluids. Continue daily fiber supplements. Use the milk a magnesia as necessary. Walk frequently, as we discussed Follow-up with your doctor, consider colonoscopy. Return here as needed. Prescriptions: No Action fluticasone propion-salmeterol [Advair Diskus] 250-50 mcg/dose Blister With Device 1 inh INHALATION BID 0RF ascorbic acid (vitamin C) 1,000 mg Tablet 500 mg PO DAILY 0RF dextroamphetamine sulfate 10 mg Tablet 5 mg PO DAILY 0RF Rx Instructions: only takes 1/2 tab lorazepam 0.5 mg Tablet 0.5 mg PO BID PRN (Reason: Anxiety) 0RF albuterol sulfate [Ventolin HFA] 90 mcg/actuation Hfa Aerosol Inhaler 2 puff INHALATION Q4-6H PRN (Reason: sob) 0RF levothyroxine 112 mcg Tablet 112 mcg PO DAILY 0RF Azo Cranberry Plus Probiotic 250-30-50 [id number] Tablet 1 tab PO DAILY 0RF lidocaine 5 % adhesive patch,medicated 1 patch topical DAILY PRN (Reason: neck pain) Qty: 15 0RF Rx Instructions: leave on most painful area for up to 12 hrs tramadol [Ultram] 50 mg tablet 50 mg PO Q6H PRN (Reason: pain) Qty: 14 0RF Referrals: Christina Saeed MD [Primary Care Provider] -
[2021-11-01 12:21] VITALS: BP 125/76; PULSE 76; RESP 18; O2SAT 96
== END 2021-11-01 12:23 | disposition home or self-care (01) ==
PROVIDERS: Emergency Provider Emergency Medicine; PCP Internal Medicine
DX: K59.01 Slow transit constipation (principal)
CPT/HCPCS: 74018; 99283

== ENCOUNTER → 2024-10-07 13:32 | Outpatient (CLI) | payer MEDICARE, SELFPAY ==
[2021-10-31 15:08] VITALS: BMI 25.4
== END ==
PROVIDERS: PCP Internal Medicine; Referring Provider Nurse Practitioner Family; Visit Provider Nurse Practitioner Family
DX: R39.89 Other symptoms and signs involving the genitourinary system (principal)
CPT/HCPCS: 87086

== ENCOUNTER → 2024-10-07 13:43 | Outpatient (CLI) | payer MEDICARE, SELFPAY ==
[2021-10-31 15:08] VITALS: BMI 25.4
--- NOTE | 2024-10-07 13:51 | DI.RAD.S_ITS ---
PROCEDURE: XR THORACIC SPINE 3V INDICATIONS: Pt had fall TECHNIQUE: 3 views of the thoracic spine were acquired. COMPARISON: None. FINDINGS: Bones: No fractures or dislocations. No suspicious bony lesions. 12 pairs of ribs are noted, and appear intact where visualized. Shaped curvature. Space.. Soft tissues: No paravertebral stripe thickening. IMPRESSION: No visualized acute fracture or dislocation. However, if clinical concern and/or pain persist, short interval imaging followup in 7-10 days is recommended, as occult injury cannot be definitively excluded. Dictated by: Claudette Ho M.D. on 10/07/2024 at 21:30 Approved by: Claudette Ho M.D. on 10/07/2024 at 21:30
== END ==
LOC: RAD 13:51
PROVIDERS: PCP Internal Medicine; Referring Provider Nurse Practitioner Family; Visit Provider Nurse Practitioner Family
DX: M81.0 Age-related osteoporosis without current pathological fracture (principal); R39.89 Other symptoms and signs involving the genitourinary system
CPT/HCPCS: 72072; 87086

== ENCOUNTER 2024-11-23 20:23 | Emergency (ER) | payer MEDICARE, SELFPAY ==
[2021-10-31 15:08] VITALS: BMI 25.4
[2024-11-23 20:46] VITALS: BP 129/68; PULSE 82; RESP 18; TEMP 36.5; O2SAT 96; BMI 24.0
[2024-11-23 21:54] VITALS: BP 116/73; PULSE 69; RESP 16; TEMP 36.5; O2SAT 95
--- NOTE | 2024-11-23 22:41 | DI.CT.S_ITS ---
PROCEDURE: CT HEAD/BRAIN WO CON INDICATIONS: altered mental status TECHNIQUE: Noncontrast 4.5 mm thick angled axial sections acquired from the foramen magnum to the vertex, with coronal and sagittal reformats. For radiation dose reduction, the following was used: automated exposure control, adjustment of mA and/or kV according to patient size. COMPARISON: [facility], CT, CT HEAD/BRAIN WO CON, 03/01/2020, 12:26. [facility], CT, CT HEAD/BRAIN WO CON, 05/19/2018, 13:55. FINDINGS: Image quality: Diagnostic. CSF spaces: Basal cisterns are patent. No extra-axial fluid collections. The ventricles are symmetric in size and shape. Brain: No intracranial bleeds or mass effect. There is cerebral volume loss, with resultant ventricular and sulcal prominence. There are periventricular and deep white matter chronic small vessel ischemic changes. There is intracranial internal carotid artery atherosclerosis. Redemonstration of remote right sided lacunar infarcts. Skull and face: Calvarium and visualized facial bones appear intact, without suspicious lesions. Sinuses: Visualized sinuses and mastoids are clear. IMPRESSION: No acute intracranial pathology. Age related senescent changes and sequela of chronic small vessel ischemic disease. No acute calvarial fractures. Redemonstration of small right lacunar infarcts. Dictated by: Han Aguayo M.D. on 11/24/2024 at 0:15 Approved by: Han Aguayo M.D. on 11/24/2024 at 0:17
[2024-11-24 00:51] LABS: Add Manual Diff / Slide Review NO; Basophils Absolute Auto 0 /uL (0-100); Basophils Percent Auto 0.1 % (0-2); Eosinophils Absolute Auto 100 /uL (0-450); Eosinophils Percent Auto 2.3 % (2-4); Hematocrit 34.5 % (36-46); Hemoglobin 11.8 g/dL (12.0-16.0); Lymphocytes Absolute Auto 1300 /uL (1100-4500); Lymphocytes Percent Auto 30.1 % (25-40); Mean Corpuscular HGB Conc 34.3 % (30-36); Mean Corpuscular Volume 87.5 fL (80-100); Monocytes Absolute Auto 700 /uL (0-900); Monocytes Percent Auto 15.8 % (3-14); Neutrophils Absolute Auto 2200 /uL (1500-7000); Neutrophils Percent Auto 51.7 % (50-75); Platelet Count 120 X10^3/uL (150-400); Red Blood Cell Count 3.94 X10^6/uL (4.0-5.2); Red Cell Distribution Width 16.1 % (11.6-14.8); White Blood Cell Count 4.3 X10^3/uL (4.5-11.0)
[2024-11-24 01:02] LABS: Alanine Aminotransferase 17 IU/L (<35); Albumin 4.4 g/dL (3.5-5.0); Albumin Globulin Ratio 1.3 (1.0-2.8); Alkaline Phosphatase 66 U/L (38-126); Aspartate Aminotransferase 38 IU/L (14-36); BUN Creatinine Ratio 30.2 (6-22); Bilirubin Total 0.7 mg/dL (0.2-1.3); Blood Urea Nitrogen 19 mg/dL (7-17); Calcium 9.4 mg/dL (8.4-10.2); Carbon Dioxide 27 mmol/L (22-32); Chloride 103 mmol/L (98-107); Estimated Glomerular Filt Rate > 60 mL/min (>60); Globulin 3.3 g/dL (1.7-4.1); Glucose 110 mg/dL (70-99); HEMOLYSIS < 15 (0-50); Potassium 4.1 mmol/L (3.4-5.1); Sodium 137 mmol/L (137-145); Total Protein 7.7 g/dL (6.3-8.2)
[2024-11-24 02:56] VITALS: BP 124/71; PULSE 72; RESP 17; TEMP 36.6; O2SAT 96
--- NOTE | 2024-11-24 03:16 | ED.GENADULT ---
HPI - General Adult General Chief complaint: Altered Mental Status Stated complaint: Confusion Time Seen by Provider: 11/23/24 22:40 Source: patient and family Mode of arrival: Ambulatory History of Present Illness HPI narrative: 83-year-old woman with a history of asthma, hypertension, hyperlipidemia, hypothyroidism, chronic constipation, TIA brought in by family today with concerns for confusion. It sounds like her confusion has been waxing and waning and is more ?she does not quite seem like herself? than anything more specific. Patient is oriented to Lorenza Maradiaga MD date of but not age or specific date today. She can not identify her daughter and her son-in-law. Her daughter does note that there have been some ongoing cognitive issues but felt that it was significantly worse today. Apparently she went to see a friend early in the morning, came back laid down took a long nap and when back over to see the friend thinking it was the next day. Daughter is concerned that mom isn't remembering a conversation from yesterday earlier could not remember events of yesterday but later was able to recall them. She can recall names and ages of grandchildren. Related Data Home Medications ?Medication ?Instructions ?Recorded ?Confirmed albuterol sulfate 90 mcg/actuation 2 puff inhalation Q4-6H PRN sob 03/01/20 10/07/24 aerosol inhaler (Ventolin HFA) ascorbic acid (vitamin C) 1,000 mg 500 mg PO DAILY 03/01/20 10/07/24 tablet cranberry [id number] 1 tab PO DAILY 03/01/20 10/07/24 coagulans 250 mg-30 mg-15 mg tablet (Azo Cranberry Plus Probiotic) dextroamphetamine sulfate 10 mg 5 mg PO DAILY 03/01/20 10/07/24 tablet fluticasone 250 mcg-salmeterol 50 1 inh inhalation BID 03/01/20 10/07/24 mcg/dose blistr powdr for inhalation (Advair Diskus) levothyroxine 112 mcg tablet 112 mcg PO DAILY 03/01/20 10/07/24 lorazepam 0.5 mg tablet 0.5 mg PO BID PRN Anxiety 03/01/20 10/07/24 alendronate 70 mg tablet 70 mg PO QWEEK 10/24/22 10/07/24 amlodipine 5 mg tablet 5 mg PO DAILY 10/24/22 10/07/24 atorvastatin 40 mg tablet 40 mg PO DAILY 10/24/22 10/07/24 Previous Rx's ?Medication ?Instructions ?Recorded lidocaine 5 % topical patch 1 patch topical DAILY PRN neck 09/03/20 pain #15 ea tramadol 50 mg tablet (Ultram) 50 mg PO Q6H PRN pain #14 tabs 09/03/20 Allergies Allergy/AdvReac Type Severity Reaction Status Date / Time No Known Drug Allergies Allergy Verified 11/23/24 20:46 Review of Systems Review of Systems Narrative: Pertinent positive and negative findings as per HPI Patient History Medical History (Updated 11/24/24 @ 03:45 by Lorenza Maradiaga MD) Cerebrovascular disease Asthma, mild intermittent Age-related osteoporosis without current pathological fracture Mixed hyperlipidemia Essential hypertension Hypothyroidism (acquired) Aplastic anemia Social History household members: spouse alcohol intake: current alcohol intake frequency: 0-2 drinks per day Alcohol type: beer and wine Exam Initial Vital Signs Initial Vital Signs: Vital Signs Temperature 97.7 F 11/23/24 20:46 Pulse Rate 82 11/23/24 20:46 Respiratory Rate 18 11/23/24 20:46 Blood Pressure 129/68 11/23/24 20:46 Pulse Oximetry 96 11/23/24 20:46 Oxygen Delivery Method Room Air 11/23/24 20:46 General: Older, frail but, in no acute distress. Able to give a complete and coherent history. HEENT: Moist mucous membranes, normal sclera with reactive pupils, Respiratory: Full and symmetrical air movement Cardiac: Regular rate and rhythm Abdomen: Soft, nontender, no rebound or guarding, no flank pain Neurologic: Grossly neurologically intact with no obvious asymmetries or abnormalities Extremities: No trauma, well perfused Psych: Cooperative, fluent speech, appropriate interaction and affect Course Orders Ordered: ED Orders 11/23/24 22:41 CT head/brain wo con Stat Complete Blood Count AUTO DIFF Stat Comprehensive Metabolic Panel Stat 11/24/24 03:05 Urinalysis and Microscopic Stat Urine Culture Stat Vital Signs Vital signs: Vital Signs - 8 hr 11/23/24 20:46 11/23/24 21:54 11/24/24 02:56 Temperature 97.7 F 97.7 F 97.8 F Pulse Rate 82 69 72 Respiratory Rate 18 16 17 Blood Pressure 129/68 116/73 124/71 Pulse Oximetry 96 95 96 Oxygen Delivery Method Room Air Room Air Medical Decision Making Lab Data 11/24/24 00:38 11/24/24 00:38 Labs: Lab Results 11/24/24 11/24/24 Range/Units 00:38 03:05 WBC 4.3 L (4.5-11.0) X10^3/uL RBC 3.94 L (4.0-5.2) X10^6/uL Hgb 11.8 L (12.0-16.0) g/dL Hct 34.5 L (36-46) % MCV 87.5 (80-100) fL MCH 30.0 (26-34) PG MCHC 34.3 (30-36) % RDW 16.1 H (11.6-14.8) % Plt Count 120 L (150-400) X10^3/uL Neut % (Auto) 51.7 (50-75) % Lymph % (Auto) 30.1 (25-40) % [place] % (Auto) 15.8 H (3-14) % Eos % (Auto) 2.3 (2-4) % Baso % (Auto) 0.1 (0-2) % Neut # (Auto) 2200 (5565-6731) /uL Lymph # (Auto) 1300 (5317-4329) /uL [place] # (Auto) 700 (0-900) /uL Eos # (Auto) 100 (0-450) /uL Baso # (Auto) 0 (0-100) /uL Sodium 137 (137-145) mmol/L Potassium 4.1 (3.4-5.1) mmol/L Chloride 103 (98-107) mmol/L Carbon Dioxide 27 (22-32) mmol/L BUN 19 H (7-17) mg/dL Creatinine 0.63 (0.52-1.04) mg/dL Estimated GFR > 60 (>60) mL/min BUN/Creatinine Ratio 30.2 H (6-22) Glucose 110 H (70-99) mg/dL Calcium 9.4 (8.4-10.2) mg/dL Total Bilirubin 0.7 (0.2-1.3) mg/dL AST 38 H (14-36) IU/L ALT 17 (<35) IU/L Alkaline Phosphatase 66 (38-126) U/L Total Protein 7.7 (6.3-8.2) g/dL Albumin 4.4 (3.5-5.0) g/dL Globulin 3.3 (1.7-4.1) g/dL Albumin/Globulin Ratio 1.3 (1.0-2.8) Urine Color Yellow Urine Appearance Clear Urine pH 5.5 (4.5-8.0) Ur Specific [place] 1.010 (1.000-1.035) Urine Protein Negative (Negative) Urine Glucose (UA) Negative (Negative) g/dL Urine Ketones Negative (NEGATIVE) Urine Occult Blood Negative (Negative) Urine Nitrate Negative (Negative) Urine Bilirubin Negative (NEGATIVE) Urine Urobilinogen 0.2 (0.2) E.U./dL Ur Leukocyte Esterase 2+ H (NEGATIVE) Urine RBC None seen (0-5/HPF) Urine WBC 1-5/hpf (0-5/HPF) Ur Squamous Epith Cells 1-5 /hpf (0-5/HPF) Urine Bacteria Few (2-10) H (None) Ur Culture Indicated? Specimen cultured Vol Urine Centrifuged 10ml (spun) Urine Dip Bedside Urine Glucose Negative Bedside Urine Bilirubin - Negative Bedside Urine Ketone - Negative Urine Specific [place] 1.015 Bedside Urine Occult Blood - Negative Bedside Urine pH 6.0 Bedside Urine Protein - Negative Bedside Urine Urobilinogen - Negative Bedside Urine Nitrite - Negative Bedside Urine Leukocytes +++ 500 Esterase Point of care testing: Urine Dip Bedside Urine Glucose Negative Bedside Urine Bilirubin - Negative Bedside Urine Ketone - Negative Urine Specific [place] 1.015 Bedside Urine Occult Blood - Negative Bedside Urine pH 6.0 Bedside Urine Protein - Negative Bedside Urine Urobilinogen - Negative Bedside Urine Nitrite - Negative Bedside Urine Leukocytes +++ 500 Esterase MDM Narrative Medical decision making narrative: CC: Confusion Complicating co-morbidities: Waxing and waning, unclear if this is actually new or simply chronic progressive, prior TIAs, hypertension, hyperlipidemia Data collected from: patient, daughter Social determinants of health that may influence the patients condition: Lives on [facility] Medical records reviewed: Multiple ER and walk in clinic visit notes, no primary care notes are available Differential considered: Progressive cognitive decline, TIA, infection, sepsis, intracranial pressure or mass Exam documented above, pertinent findings include: Unremarkable, interactive, appropriate alert to person time and place. Lab Test results independently reviewed as above. Pertinent findings: CBC shows slightly low white blood cell count 4.3. Hemoglobin and hematocrit 11.8 and 34.5, platelets are minimally low at 112 Chemistries are reassuring Urine does not show acute findings suggestion of UTI Imaging studies independently reviewed: CT scan of the head was done today with no acute pathology appreciated. There is mention of redemonstration of small right lacunar infarcts Discussion: 83-year-old woman with progressive but waxing and waning symptoms of cognitive decline. She did see her primary care doctor regarding this on the he was recommended MRI scanning and neurologic consultation. Today there were no acute findings appreciated such as stroke, head bleed, tumors, infection, acute coronary syndrome. Patient seems to actually be back to her baseline at this point. We talked about waxing and waning symptoms with cognitive decline. Patient and her daughter are both happy to go home and follow up with their primary physician's recommendations. There was no indication for additional imaging or hospitalization and she is safe for discharge Discharge Plan Departure Patient Disposition: Home Clinical Impression: Altered mental status Qualifiers: Altered mental status type: unspecified Qualified Code(s): R41.82 - Altered mental status, unspecified Instructions: DI for Altered Mental Status Activity Restrictions/Additional Instructions: Thank you for coming in today I am not finding evidence of stroke, infection, significant blood abnormalities, heart attack or heart attack like syndrome, no sign of meningitis. The symptoms that you are describing do sound like early cognitive decline. At this time with a normal CT scan of the head and blood work, my next recommendation would be MRI and Neurology consult as your primary care doctor has recommended. If you find that you are getting worse or develop any new symptoms, please feel free to return to the emergency department for further evaluation. Prescriptions: No Action amlodipine 5 mg tablet 5 mg PO DAILY Patient Comments: TAKE 1 TABLET BY MOUTH DAILY alendronate 70 mg tablet 70 mg PO QWEEK Patient Comments: TAKE 1 TABLET BY MOUTH EVERY 7 DAYS. TAKE 30 MINUTES BEFORE FIRST FOOD/DRINK/MEDS OF THE DAY. STAY UPRIGHT FOR 30 MINUTES Rx Instructions: TAKE 1 TABLET BY MOUTH EVERY 7 DAYS. TAKE 30 MINUTES BEFORE FIRST FOOD/DRINK/MEDS OF THE DAY. STAY UPRIGHT FOR 30 MINUTES atorvastatin 40 mg tablet 40 mg PO DAILY fluticasone propion-salmeterol [Advair Diskus] 250-50 mcg/dose Blister With Device 1 inh INHALATION BID ascorbic acid (vitamin C) 1,000 mg Tablet 500 mg PO DAILY dextroamphetamine sulfate 10 mg Tablet 5 mg PO DAILY Rx Instructions: only takes 1/2 tab lorazepam 0.5 mg Tablet 0.5 mg PO BID PRN (Reason: Anxiety) albuterol sulfate [Ventolin HFA] 90 mcg/actuation Hfa Aerosol Inhaler 2 puff INHALATION Q4-6H PRN (Reason: sob) levothyroxine 112 mcg Tablet 112 mcg PO DAILY Azo Cranberry Plus Probiotic 250-30-50 [id number] Tablet 1 tab PO DAILY lidocaine 5 % adhesive patch,medicated 1 patch topical DAILY PRN (Reason: neck pain) Qty: 15 0RF Rx Instructions: leave on most painful area for up to 12 hrs tramadol [Ultram] 50 mg tablet 50 mg PO Q6H PRN (Reason: pain) Qty: 14 0RF Referrals: Christina Saeed MD [Primary Care Provider, Internal Medicine] Stand Alone Forms: Patient Portal/API
[2024-11-24 03:21] LABS: Appearance Urine UA CLEAR; Bilirubin Urine UA NEGATIVE (NEGATIVE); Color Urine UA YELLOW; Glucose Urine UA NEGATIVE (Negative); Ketones Urine UA NEGATIVE (NEGATIVE); Leukocyte Esterase Urine UA 2+ (NEGATIVE); Nitrite Urine UA NEGATIVE (Negative); Occult Blood Urine UA NEGATIVE (Negative); Protein Urine UA NEGATIVE (Negative); Urobilinogen Urine UA 0.2 E.U./dL (0.2)
[2024-11-24 03:30] LABS: Bacteria Urine Few (2-10); RBC Urine None Seen (0-5/HPF); Squamous Epithelial Cell Urine 1-5 /HPF (0-5/HPF); Urine Volume 10mL (spun); WBC Urine 1-5/HPF (0-5/HPF); pH Urine UA 5.5 (4.5-8.0)
[2024-11-24 03:31] LABS: Culture Indicated Urine Specimen Cultured
== END 2024-11-24 03:50 | disposition home or self-care (01) ==
PROVIDERS: Emergency Provider Emergency Medicine; PCP Internal Medicine
DX: R41.82 Altered mental status, unspecified (principal)
CPT/HCPCS: 36415; 70450; 80053; 81001; 81003; 85025; 87086; 99282; 99284

== ENCOUNTER → 2024-11-25 16:57 | Outpatient (CLI) | payer MEDICARE, SELFPAY ==
[2021-10-31 15:08] VITALS: BMI 25.4
--- NOTE | 2024-11-25 17:00 | DI.MRI.S_ITS ---
PROCEDURE: MR HEAD/BRAIN WO CON INDICATIONS: MILD COG IMPAIRMENT/MULTIPLE CEREBRAL INFARCTIONS TECHNIQUE: Non-contrast axial T1 spin echo, axial T2 fast spin echo, sagittal and axial FLAIR, coronal T2 fast spin echo, axial gradient echo, axial diffusion and ADC through the brain. COMPARISON: [facility], MR, MR HEAD/BRAIN WO/W CON, 03/01/2020, 15:46. [facility], CT, CT HEAD/BRAIN WO CON, 11/23/2024, 23:28. FINDINGS: Image quality: Excellent. CSF spaces: Ventricles appear symmetric in size and shape. Basal cisterns are patent. No extra-axial fluid collections. Brain: Within the left cerebellar hemisphere, there is an 8 mm focus of abnormal diffusion-weighted signal, as on series 11, image 6. Associated dark signal can be seen at the ADC map at this site. There is developing T2 weighted signal at this site. No intracranial bleeds or mass effects. There is moderate generalized brain parenchymal volume loss seen, which is mildly worse within the temporal lobes and the parietal lobes than elsewhere within the brain. Moderate chronic small vessel ischemic change is seen. Brainstem appears normal. No chronic ischemic insults. Normal intravascular flow voids are present. Skull and face: Calvarial bone marrow is normal in signal. Orbits are normal. Note is made of bilateral lens replacements. Sinuses: Sinuses and mastoids are clear. IMPRESSION: Focal subacute infarction seen within the left cerebellar hemisphere. Moderate generalized brain parenchymal volume loss is seen, which is mildly more prominent within the temporal lobes and the parietal lobes than elsewhere within the brain. There is moderate chronic small vessel ischemic change. Dictated by: Phil Higginbotham M.D. on 11/26/2024 at 15:33 Approved by: Phil Higginbotham M.D. on 11/26/2024 at 15:35
== END ==
PROVIDERS: PCP Internal Medicine; Referring Provider Family Medicine; Visit Provider Family Medicine
DX: I63.9 Cerebral infarction, unspecified (principal); G31.84 Mild cognitive impairment of uncertain or unknown etiology
CPT/HCPCS: 70551

== ENCOUNTER 2024-12-18 08:36 | Emergency (ER) | payer MEDICARE, SELFPAY ==
[2021-10-31 15:08] VITALS: BMI 25.4
[2024-12-18] VITALS (25 sets, daily range): BP systolic 98–135; BP diastolic 55–85; PULSE 71–83; RESP 16–38; TEMP 36.8; O2SAT 89–97
--- NOTE | 2024-12-18 08:59 | DI.RAD.S_ITS ---
PROCEDURE: XR CHEST 1V INDICATIONS: Chest Pain TECHNIQUE: One view of the chest was acquired. COMPARISON: None. FINDINGS: Abnormal appearance of the lower chest and upper abdomen may be related to large hiatal hernia, diaphragmatic hernia or other similar to prior x-ray thoracic spine from 10/07/2024. Cardiopericardial size cannot be determined due to suspected large hernia. Rotated left anterior oblique. Possible peribronchial thickening and patchy opacities in the lower lobes some of which may be related to subsegmental atelectasis, expiratory result although bronchitis or other process not excluded and follow-up suggested. CT chest may be useful for further evaluation. Moderate degenerative changes of the thoracic spine and severe degenerative changes bilateral shoulders. No pneumothorax, no large pleural effusion. IMPRESSION: Suspected large hiatal hernia or diaphragmatic hernia as discussed above limits evaluation of the chest. Suspected peribronchial thickening as discussed above. Follow-up suggested. CT chest could be considered Dictated by: Deepak Guerrero M.D. on 12/18/2024 at 10:42 Approved by: Deepak Guerrero M.D. on 12/18/2024 at 10:51
--- NOTE | 2024-12-18 09:00 | EKG_ITS ---
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
[2024-12-18 09:12] LABS: Add Manual Diff / Slide Review NO; Hematocrit 37.5 % (36-46); Hemoglobin 12.8 g/dL (12.0-16.0); Lymphocytes Absolute Auto 1600 /uL (1100-4500); Mean Corpuscular HGB Conc 34.2 % (30-36); Mean Corpuscular Hemoglobin 30.0 PG (26-34); Mean Corpuscular Volume 87.8 fL (80-100); Platelet Count 124 X10^3/uL (150-400)
[2024-12-18 09:17] LABS: INR 0.9 (0.9-1.3); Prothrombin Time 10.5 SECONDS (9.4-12.5)
[2024-12-18 09:19] LABS: PTT Partial Thromboplastin Tim 30 SECONDS (25.1-36.5)
[2024-12-18 09:21] LABS: Alanine Aminotransferase 15 IU/L (<35); Albumin 4.3 g/dL (3.5-5.0); Albumin Globulin Ratio 1.3 (1.0-2.8); Alkaline Phosphatase 74 U/L (38-126); Blood Urea Nitrogen 17 mg/dL (7-17); Calcium 9.2 mg/dL (8.4-10.2); Carbon Dioxide 29 mmol/L (22-32); Chloride 104 mmol/L (98-107); Creatine Kinase 72 U/L (30-135); Estimated Glomerular Filt Rate > 60 mL/min (>60); Globulin 3.3 g/dL (1.7-4.1); Glucose 108 mg/dL (70-99); HEMOLYSIS < 15 (0-50); Lipase 437 U/L (23-300); Magnesium 1.9 mg/dL (1.6-2.3); Potassium 4.2 mmol/L (3.4-5.1); Sodium 138 mmol/L (137-145); Total Protein 7.6 g/dL (6.3-8.2)
[2024-12-18 09:32] LABS: NT-proBNP (BNP-Adult 18+) 325 pg/mL (<450); Troponin I < 0.012 ng/mL (0.01-0.034)
--- NOTE | 2024-12-18 11:03 | DI.CT.S_ITS ---
PROCEDURE: CT ABDOMEN PELVIS W CON INDICATIONS: pancreatitis TECHNIQUE: After the administration of intravenous contrast, axial sections acquired from the lung bases to the pubic symphysis. Coronal and sagittal reformats were performed. For radiation dose reduction, the following was used: automated exposure control, adjustment of mA and/or kV according to patient size. COMPARISON: None. FINDINGS: Image quality: Diagnostic. Lower Chest: Large hiatal hernia with adjacent compressive atelectasis at bilateral lung bases. Heart size is enlarged, no pericardial effusion. ABDOMEN: Liver: No solid mass. Gallbladder: Gallbladder is distended. Single calcified stone in dependent portion of gallbladder lumen is seen. No gallbladder wall thickening. Biliary ducts: Mild intrahepatic biliary ductal dilatation and dilatation of common bile duct measures up to 1 cm in short axis diameter. No gross choledocholithiasis is seen. Pancreas: No ductal dilation. No discrete peripancreatic fluid collection or obvious pancreatic mass is seen. Spleen: Size is within normal limits. Adrenal Glands: No adrenal nodules. Kidneys and Ureters: No hydronephrosis. No solid mass. No complex renal cystic lesion which requires follow up. Stomach and Bowel: No bowel obstruction or abnormal bowel wall thickening. No mesenteric fat stranding. Colonic diverticulosis without CT evidence of acute diverticulitis. No abscess collection. Peritoneum: No abnormal intraperitoneal fluid. No free air. Ventral Wall: No significant ventral hernia. Abdominal Nodes: No retroperitoneal or mesenteric adenopathy by size criteria. Vessels: Aorta and inferior vena cava are normal in size. PELVIS: Pelvic Organs: Pessary device is seen. Bladder: No bladder wall thickening, accounting for underdistention. Pelvic Nodes: No enlarged lymph nodes. Miscellaneous: No inguinal hernias are seen. Bones: No aggressive osseous abnormality. No acute vertebral body compression fracture. IMPRESSION: 1. No discrete pancreatic lesion. No significant peripancreatic inflammatory changes seen on the current study. No gross pseudocyst formation. 2. Mild intrahepatic biliary ductal dilatation and dilatation of common bile duct measures up to 1 cm in diameter. No obvious choledocholithiasis is seen. MRCP can be done for further evaluation if indicated. 3. Distended gallbladder with single gallstone. No gallbladder wall thickening. 4. Large hiatal hernia. No bowel obstruction or abnormal bowel wall thickening. No free fluid or free air. Dictated by: Gallo Lugo M.D. on 12/18/2024 at 13:03 Approved by: Gallo Lugo M.D. on 12/18/2024 at 13:14
[2024-12-18 12:05] LABS: Troponin I < 0.012 ng/mL (0.01-0.034)
--- NOTE | 2024-12-18 16:35 | ED.CHESTPAIN ---
HPI - Chest Pain General Chief Complaint: Chest Pain Stated Complaint: chest pain Time Seen by Provider: 12/18/24 09:09 Source: patient and EMS Mode of arrival: EMS History of Present Illness HPI narrative: Pleasant 84-year-old woman without cardiac or CVA history comes to the ER because of severe substernal/epigastric pain accompanied by nausea which was there upon waking this morning in the [employer]. She denies any diaphoresis, shortness of breath, lightheadedness, palpitations. She denies any fever, chills, sweats. She denies any recent GI symptoms such as nausea vomiting diarrhea or constipation. She denies any other concerns or complaints at this time. Of note, she has recently been diagnosed with early dementia. Related Data Home Medications ?Medication ?Instructions ?Recorded ?Confirmed albuterol sulfate 90 mcg/actuation 2 puff inhalation Q4-6H PRN sob 03/01/20 10/07/24 aerosol inhaler (Ventolin HFA) ascorbic acid (vitamin C) 1,000 mg 500 mg PO DAILY 03/01/20 10/07/24 tablet cranberry [id number] 1 tab PO DAILY 03/01/20 10/07/24 coagulans 250 mg-30 mg-15 mg tablet (Azo Cranberry Plus Probiotic) dextroamphetamine sulfate 10 mg 5 mg PO DAILY 03/01/20 10/07/24 tablet fluticasone 250 mcg-salmeterol 50 1 inh inhalation BID 03/01/20 10/07/24 mcg/dose blistr powdr for inhalation (Advair Diskus) levothyroxine 112 mcg tablet 112 mcg PO DAILY 03/01/20 10/07/24 lorazepam 0.5 mg tablet 0.5 mg PO BID PRN Anxiety 03/01/20 10/07/24 alendronate 70 mg tablet 70 mg PO QWEEK 10/24/22 10/07/24 amlodipine 5 mg tablet 5 mg PO DAILY 10/24/22 10/07/24 atorvastatin 40 mg tablet 40 mg PO DAILY 10/24/22 10/07/24 Previous Rx's ?Medication ?Instructions ?Recorded lidocaine 5 % topical patch 1 patch topical DAILY PRN neck 09/03/20 pain #15 ea tramadol 50 mg tablet (Ultram) 50 mg PO Q6H PRN pain #14 tabs 09/03/20 Allergies Allergy/AdvReac Type Severity Reaction Status Date / Time No Known Drug Allergies Allergy Verified 12/18/24 09:05 Patient History Medical History (Updated 12/18/24 @ 16:41 by Rafi Molina MD) Cerebrovascular disease Asthma, mild intermittent Age-related osteoporosis without current pathological fracture Mixed hyperlipidemia Essential hypertension Hypothyroidism (acquired) Aplastic anemia Social History household members: spouse Smoking Status: Never smoker alcohol intake: current Smoking Status: Never smoker alcohol intake frequency: 0-2 drinks per day Alcohol type: beer and wine Exam Initial Vital Signs Initial Vital Signs: Vital Signs Temperature 98.3 F 12/18/24 08:56 Pulse Rate 75 12/18/24 08:56 Respiratory Rate 16 12/18/24 08:56 Blood Pressure 122/66 12/18/24 08:56 Pulse Oximetry 96 12/18/24 08:56 Oxygen Delivery Method Room Air 12/18/24 08:56 Const General: cooperative, healthy appearing, well developed, No acute distress, No in distress, No ill appearing and No lethargic [facility] Head: normal to inspection, normocephalic and atraumatic Neck Neck: normal visual inspection, no meningeal signs and No tender Carotids: no bruits Chest Chest: normal inspection of the chest Resp Effort & Inspection: normal respiratory effort, no audible wheezes, no cough, not labored, no respiratory distress, no retractions and symmetric chest movement Auscultation: not clear to auscultation bilaterally (diminished r. sided) Cardio Rate: regular rate Rhythm: regular rhythm Heart Sounds: S1 normal and S2 normal GI Inspection: normal to inspection Palpation: soft and No tender Auscultation: normal bowel sounds Course Course Course Narrative: Patient seen and examined upon arrival in the ER. On her initial chest x-ray was noted that her right lung was almost completely obliterated. Over the course of the ER stay she started requiring supplemental oxygen only 2 liters/minute via nasal cannula. We also did a CT abdomen pelvis which also supported the massive hiatal hernia in the right chest. The remainder of her cardiac evaluation was unremarkable. Of note her lipase was mildly elevated in the 400s and she was given some IV fluids. I discussed the case eventually with Dr. Drew of Cardiothoracic surgery from [facility] and he accepted the patient for transfer and he plans to repair the hernia tonight. The patient was kept NPO throughout her stay in the ER. Orders Ordered: ED Orders 12/18/24 08:56 Complete Blood Count AUTO DIFF Stat Comprehensive Metabolic Panel Stat D Dimer Stat Lipase Stat Magnesium Stat NT-proBNP (BNP-Adult 18+) Stat PTT Partial Thromboplastin Jayson Stat Prothrombin Time INR Stat Troponin & CK Cardiac Panel Stat 12/18/24 08:59 XR chest 1V Stat EKG-12 Lead Stat 12/18/24 11:03 CT abdomen pelvis w con Stat 12/18/24 11:26 Trop I [Troponin I] Stat Vital Signs Vital signs: Vital Signs - 8 hr 12/18/24 08:56 12/18/24 09:04 12/18/24 09:06 Temperature 98.3 F Pulse Rate 75 78 Respiratory Rate 16 38 H Blood Pressure 122/66 131/64 Pulse Oximetry 96 Oxygen Delivery Method Room Air Oxygen Flow Rate 12/18/24 09:06 12/18/24 09:30 12/18/24 09:30 Temperature Pulse Rate 79 78 Respiratory Rate 34 H 34 H Blood Pressure 135/74 Pulse Oximetry 89 L 91 Oxygen Delivery Method Room Air Oxygen Flow Rate 12/18/24 10:00 12/18/24 10:00 12/18/24 10:30 Temperature Pulse Rate 78 78 Respiratory Rate 25 H 19 Blood Pressure 135/78 Pulse Oximetry 94 94 Oxygen Delivery Method Oxygen Flow Rate 12/18/24 10:30 12/18/24 11:00 12/18/24 11:00 Temperature Pulse Rate 80 Respiratory Rate 27 H Blood Pressure 125/69 113/57 L Pulse Oximetry 95 Oxygen Delivery Method Room Air Oxygen Flow Rate 12/18/24 11:30 12/18/24 11:30 12/18/24 11:57 Temperature Pulse Rate 79 76 Respiratory Rate 32 H 29 H Blood Pressure 115/63 Pulse Oximetry 96 95 Oxygen Delivery Method Oxygen Flow Rate 12/18/24 11:57 12/18/24 12:00 12/18/24 12:00 Temperature Pulse Rate 74 Respiratory Rate 23 Blood Pressure 123/68 121/68 Pulse Oximetry 97 Oxygen Delivery Method Oxygen Flow Rate 12/18/24 12:30 12/18/24 12:30 12/18/24 12:46 Temperature Pulse Rate 79 Respiratory Rate 25 H Blood Pressure 133/60 119/63 Pulse Oximetry 95 Oxygen Delivery Method Nasal Cannula Oxygen Flow Rate 2 12/18/24 12:46 12/18/24 13:00 12/18/24 13:00 Temperature Pulse Rate 82 77 Respiratory Rate 30 H 27 H Blood Pressure 116/61 Pulse Oximetry 92 90 L Oxygen Delivery Method Oxygen Flow Rate 12/18/24 13:30 12/18/24 13:30 12/18/24 14:00 Temperature Pulse Rate 79 74 Respiratory Rate 23 24 Blood Pressure 115/68 Pulse Oximetry 95 94 Oxygen Delivery Method Nasal Cannula Oxygen Flow Rate 2 12/18/24 14:00 12/18/24 14:30 12/18/24 14:30 Temperature Pulse Rate 78 Respiratory Rate 29 H Blood Pressure 114/85 111/57 L Pulse Oximetry 93 Oxygen Delivery Method Oxygen Flow Rate 12/18/24 15:00 12/18/24 15:00 12/18/24 15:30 Temperature Pulse Rate 80 Respiratory Rate 37 H Blood Pressure 114/56 L 107/59 L Pulse Oximetry 94 Oxygen Delivery Method Oxygen Flow Rate 12/18/24 15:30 Temperature Pulse Rate 81 Respiratory Rate 32 H Blood Pressure Pulse Oximetry 93 Oxygen Delivery Method Room Air Oxygen Flow Rate MDM - Chest Pain Differential Diagnosis Differential diagnosis: Likely pneumothorax, stable angina, unstable angina pectoris, atypical chest pain, st elevation myocardial infarction, costochondritis, chest pain and biliary colic Lab Data 12/18/24 08:56 12/18/24 08:56 Labs: Lab Results 12/18/24 12/18/24 Range/Units 08:56 11:26 WBC 6.0 (4.5-11.0) X10^3/uL RBC 4.27 (4.0-5.2) X10^6/uL Hgb 12.8 (12.0-16.0) g/dL Hct 37.5 (36-46) % MCV 87.8 (80-100) fL MCH 30.0 (26-34) PG MCHC 34.2 (30-36) % RDW 15.7 H (11.6-14.8) % Plt Count 124 L (150-400) X10^3/uL Neut % (Auto) 61.2 (50-75) % Lymph % (Auto) 26.8 (25-40) % [place] % (Auto) 10.6 (3-14) % Eos % (Auto) 1.4 L (2-4) % Baso % (Auto) 0.0 (0-2) % Neut # (Auto) 3700 (3986-4344) /uL Lymph # (Auto) 1600 (8535-9793) /uL [place] # (Auto) 600 (0-900) /uL Eos # (Auto) 100 (0-450) /uL Baso # (Auto) 0 (0-100) /uL PT 10.5 (9.4-12.5) SECONDS INR 0.9 (0.9-1.3) APTT 30 (25.1-36.5) SECONDS D-Dimer 650 H (<500) ng/ml Sodium 138 (137-145) mmol/L Potassium 4.2 (3.4-5.1) mmol/L Chloride 104 (98-107) mmol/L Carbon Dioxide 29 (22-32) mmol/L BUN 17 (7-17) mg/dL Creatinine 0.61 (0.52-1.04) mg/dL Estimated GFR > 60 (>60) mL/min BUN/Creatinine Ratio 27.9 H (6-22) Glucose 108 H (70-99) mg/dL Calcium 9.2 (8.4-10.2) mg/dL Magnesium 1.9 (1.6-2.3) mg/dL Total Bilirubin 1.0 (0.2-1.3) mg/dL AST 41 H (14-36) IU/L ALT 15 (<35) IU/L Alkaline Phosphatase 74 (38-126) U/L Total Creatine Kinase 72 (30-135) U/L Troponin I < 0.012 < 0.012 (0.01-0.034) ng/mL NT-Pro-B Natriuret Pep 325 (<450) pg/mL Total Protein 7.6 (6.3-8.2) g/dL Albumin 4.3 (3.5-5.0) g/dL Globulin 3.3 (1.7-4.1) g/dL Albumin/Globulin Ratio 1.3 (1.0-2.8) Lipase 437 H (23-300) U/L ECG Data Interpretation: NSR. Rate 80. [place] Discharge Plan Departure Patient Disposition: [facility] Clinical Impression: Hernia, hiatal Prescriptions: No Action amlodipine 5 mg tablet 5 mg PO DAILY Patient Comments: TAKE 1 TABLET BY MOUTH DAILY alendronate 70 mg tablet 70 mg PO QWEEK Patient Comments: TAKE 1 TABLET BY MOUTH EVERY 7 DAYS. TAKE 30 MINUTES BEFORE FIRST FOOD/DRINK/MEDS OF THE DAY. STAY UPRIGHT FOR 30 MINUTES Rx Instructions: TAKE 1 TABLET BY MOUTH EVERY 7 DAYS. TAKE 30 MINUTES BEFORE FIRST FOOD/DRINK/MEDS OF THE DAY. STAY UPRIGHT FOR 30 MINUTES atorvastatin 40 mg tablet 40 mg PO DAILY fluticasone propion-salmeterol [Advair Diskus] 250-50 mcg/dose Blister With Device 1 inh INHALATION BID ascorbic acid (vitamin C) 1,000 mg Tablet 500 mg PO DAILY dextroamphetamine sulfate 10 mg Tablet 5 mg PO DAILY Rx Instructions: only takes 1/2 tab lorazepam 0.5 mg Tablet 0.5 mg PO BID PRN (Reason: Anxiety) albuterol sulfate [Ventolin HFA] 90 mcg/actuation Hfa Aerosol Inhaler 2 puff INHALATION Q4-6H PRN (Reason: sob) levothyroxine 112 mcg Tablet 112 mcg PO DAILY Azo Cranberry Plus Probiotic 250-30-50 [id number] Tablet 1 tab PO DAILY lidocaine 5 % adhesive patch,medicated 1 patch topical DAILY PRN (Reason: neck pain) Qty: 15 0RF Rx Instructions: leave on most painful area for up to 12 hrs tramadol [Ultram] 50 mg tablet 50 mg PO Q6H PRN (Reason: pain) Qty: 14 0RF Referrals: Christina Saeed MD [Primary Care Provider, Internal Medicine]
== END 2024-12-18 19:21 | disposition short-term general hospital (02) ==
PROVIDERS: Emergency Provider Emergency Medicine; PCP Internal Medicine
DX: K44.9 Diaphragmatic hernia without obstruction or gangrene (principal); R10.13 Epigastric pain
CPT/HCPCS: 36415; 71045; 74177; 80053; 82550; 83690; 83735; 83880; 84484; 85025; 85379; 85610; 85730; 93005; 93010; 99284; Q9967

== ENCOUNTER 2025-02-26 12:05 | Emergency (ER) | payer MEDICARE, SELFPAY ==
[2021-10-31 15:08] VITALS: BMI 25.4
[2025-02-26 12:22] VITALS: BP 111/61; PULSE 60; RESP 16; TEMP 36.6; O2SAT 95; BMI 23.4
--- NOTE | 2025-02-26 13:24 | DI.CT.S_ITS ---
PROCEDURE: CT HEAD/BRAIN WO CON INDICATIONS: fall hit back of head 1 week ago TECHNIQUE: Noncontrast 4.5 mm thick angled axial sections acquired from the foramen magnum to the vertex, with coronal and sagittal reformats. For radiation dose reduction, the following was used: automated exposure control, adjustment of mA and/or kV according to patient size. COMPARISON: [facility], CT, CT HEAD/BRAIN WO CON, 11/23/2024, 23:28. FINDINGS: Image quality: Diagnostic. CSF spaces: Basal cisterns are patent. No extra-axial fluid collections. The ventricles are symmetric in size and shape. Brain: No intracranial bleeds or mass effect. There is cerebral volume loss, with resultant ventricular and sulcal prominence. There are periventricular and deep white matter chronic small vessel ischemic changes. Multiple old tiny lacunar infarctions. There is intracranial internal carotid artery atherosclerosis. Skull and face: Calvarium and visualized facial bones appear intact, without suspicious lesions. Sinuses: Visualized sinuses and mastoids are clear. IMPRESSION: No acute intracranial pathology. Dictated by: Jared Herrera M.D. on 02/26/2025 at 14:27 Approved by: Jared Herrera M.D. on 02/26/2025 at 14:28
--- NOTE | 2025-02-26 13:24 | DI.CT.S_ITS ---
PROCEDURE: CT CERVICAL SPINE WO CON INDICATIONS: fall hit back of head TECHNIQUE: Noncontrast 3 mm thick sections acquired from the skull base to the T4 level. Sagittal and coronal reformats were then constructed. For radiation dose reduction, the following was used: automated exposure control, adjustment of mA and/or kV according to patient size. COMPARISON: None. FINDINGS: Image quality: Excellent. Bones: No cervical fractures or dislocations. Cervical spondylosis. Visualized superior ribs are intact. Soft tissues: Prevertebral soft tissues are normal in thickness. No paravertebral hematomas. No apical pneumothoraces. Small bilateral pleural effusions and bibasilar atelectasis. IMPRESSION: No displaced fracture or traumatic subluxation. Dictated by: Jared Herrera M.D. on 02/26/2025 at 14:28 Approved by: Jared Herrera M.D. on 02/26/2025 at 14:34
--- NOTE | 2025-02-26 14:24 | ED.FALL ---
HPI - Fall <Blanca Lock PA-C - Last Filed: 02/26/25 15:02> General Chief Complaint: Fall Stated Complaint: fell and hit head, knot- sent from [facility] Time Seen by Provider: 02/26/25 13:23 Source: patient Mode of arrival: Ambulatory History of Present Illness HPI Narrative: Ms. Hernandez it is very pleasant 84-year-old female with a past medical history of dementia, prior CVA, hiatal hernia, HTN, HLD, asthma who presents to the emergency department with her for head trauma/fall that occurred 1 week ago. Patient and her report that they were in [place] for a wedding, patient had had alcohol for the 1st time in a very long time and fell during the night when trying to go to the bathroom. found her on the bathroom floor with a bruise on the posterior right parietal scalp. There was no loss of consciousness, no blood thinner use. Patient has been and has been in her baseline state of health over the last week but decided that she should probably get imaging of her head given the significance of the fall. No LOC, nausea, vomiting, dizziness, neck pain, extremity pain, chest pain, shortness of breath, dysuria, fevers, chills. She ambulates with a cane. Related Data Home Medications ?Medication ?Instructions ?Recorded ?Confirmed albuterol sulfate 90 mcg/actuation 2 puff inhalation Q4-6H PRN sob 03/01/20 10/07/24 aerosol inhaler (Ventolin HFA) ascorbic acid (vitamin C) 1,000 mg 500 mg PO DAILY 03/01/20 10/07/24 tablet cranberry [id number] 1 tab PO DAILY 03/01/20 10/07/24 coagulans 250 mg-30 mg-15 mg tablet (Azo Cranberry Plus Probiotic) dextroamphetamine sulfate 10 mg 5 mg PO DAILY 03/01/20 10/07/24 tablet fluticasone 250 mcg-salmeterol 50 1 inh inhalation BID 03/01/20 10/07/24 mcg/dose blistr powdr for inhalation (Advair Diskus) levothyroxine 112 mcg tablet 112 mcg PO DAILY 03/01/20 10/07/24 lorazepam 0.5 mg tablet 0.5 mg PO BID PRN Anxiety 03/01/20 10/07/24 alendronate 70 mg tablet 70 mg PO QWEEK 10/24/22 10/07/24 amlodipine 5 mg tablet 5 mg PO DAILY 10/24/22 10/07/24 atorvastatin 40 mg tablet 40 mg PO DAILY 10/24/22 10/07/24 Previous Rx's ?Medication ?Instructions ?Recorded lidocaine 5 % topical patch 1 patch topical DAILY PRN neck 09/03/20 pain #15 ea tramadol 50 mg tablet (Ultram) 50 mg PO Q6H PRN pain #14 tabs 09/03/20 Allergies Allergy/AdvReac Type Severity Reaction Status Date / Time No Known Drug Allergies Allergy Verified 02/26/25 12:22 Review of Systems <Blanca Lock PA-C - Last Filed: 02/26/25 15:02> Review of Systems ROS Unobtainable: All systems reviewed & are unremarkable except as noted in HPI and below Patient History <Blanca Lock PA-C - Last Filed: 02/26/25 15:02> Medical History Cerebrovascular disease Asthma, mild intermittent Age-related osteoporosis without current pathological fracture Mixed hyperlipidemia Essential hypertension Hypothyroidism (acquired) Aplastic anemia Social History household members: spouse Smoking Status: Never smoker alcohol intake: current Smoking Status: Never smoker alcohol intake frequency: 0-2 drinks per day Alcohol type: wine Exam <Blanca Lock PA-C - Last Filed: 02/26/25 15:02> Narrative Exam Narrative: GENERAL: 84 year old patient appears stated age. Frail elderly patient, in no acute distress. HEAD: Normocephalic. Ecchymosis on right posterior parietal scalp. No palpable skull fracture. No wound. EYES: PERRL. Extraocular motions intact. No scleral icterus. No injection or drainage. ENT: Nose without bleeding, purulent drainage. Throat without erythema, tonsillar hypertrophy or exudate. Airway patent. NECK: Trachea midline. Cervical ROM intact. No midline cervical tenderness. CARDIOVASCULAR: Regular rate and rhythm. RESPIRATORY: ?Nonlabored respirations. ?Speaking in clear, full sentences. ?Clear to auscultation. Breath sounds equal bilaterally. No wheezes, rales, or rhonchi. ? GASTROINTESTINAL: Abdomen soft, non-tender, nondistended. EXTREMITIES: No upper or lower extremity tenderness. BACK: Nontender without deformity or crepitance. No flank tenderness. NEURO: Alert to person, place. Unsure of here and your she was born. Is able to answer questions. History supplemented by her , reorted baseline. Clear speech. ?Moves all 4 extremities appropriately. SKIN: No rash or erythema of visible areas, there is ecchymosis on the posterior right scalp. Initial Vital Signs Initial Vital Signs: Vital Signs Temperature 98 F 02/26/25 12:22 Pulse Rate 60 02/26/25 12:22 Respiratory Rate 16 02/26/25 12:22 Blood Pressure 111/61 02/26/25 12:22 Pulse Oximetry 95 02/26/25 12:22 Oxygen Delivery Method Room Air 02/26/25 12:22 <Fransisca Rubalcava DO - Last Filed: 02/27/25 08:31> Initial Vital Signs Initial Vital Signs: Vital Signs Temperature 98 F 02/26/25 12:22 Pulse Rate 60 02/26/25 12:22 Respiratory Rate 16 02/26/25 12:22 Blood Pressure 111/61 02/26/25 12:22 Pulse Oximetry 95 02/26/25 12:22 Oxygen Delivery Method Room Air 02/26/25 12:22 Course <Blanca Lock PA-C - Last Filed: 02/26/25 15:02> Orders Ordered: ED Orders 02/26/25 13:24 CT cervical spine wo con Stat CT head/brain wo con Stat Vital Signs Vital signs: Vital Signs - 8 hr 02/26/25 12:22 Temperature 98 F Pulse Rate 60 Respiratory Rate 16 Blood Pressure 111/61 Pulse Oximetry 95 Oxygen Delivery Method Room Air <Fransisca Rubalcava DO - Last Filed: 02/27/25 08:31> Orders Ordered: ED Orders 02/26/25 13:24 CT cervical spine wo con Stat CT head/brain wo con Stat Vital Signs Vital signs: Vital Signs - 8 hr 02/26/25 12:22 Temperature 98 F Pulse Rate 60 Respiratory Rate 16 Blood Pressure 111/61 Pulse Oximetry 95 Oxygen Delivery Method Room Air MDM - Fall <CHARITY Galicia Last Filed: 02/26/25 15:02> Medical Records Attestation: I reviewed the patient's medical records. Imaging Data CT scan - head: Radiologist's Impression: PROCEDURE: CT HEAD/BRAIN WO CON INDICATIONS: fall hit back of head 1 week ago TECHNIQUE: Noncontrast 4.5 mm thick angled axial sections acquired from the foramen magnum to the vertex, with coronal and sagittal reformats. For radiation dose reduction, the following was used: automated exposure control, adjustment of mA and/or kV according to patient size. COMPARISON: [facility], CT, CT HEAD/BRAIN WO CON, 11/23/2024, 23:28. FINDINGS: Image quality: Diagnostic. CSF spaces: Basal cisterns are patent. No extra-axial fluid collections. The ventricles are symmetric in size and shape. Brain: No intracranial bleeds or mass effect. There is cerebral volume loss, with resultant ventricular and sulcal prominence. There are periventricular and deep white matter chronic small vessel ischemic changes. Multiple old tiny lacunar infarctions. There is intracranial internal carotid artery atherosclerosis. Skull and face: Calvarium and visualized facial bones appear intact, without suspicious lesions. Sinuses: Visualized sinuses and mastoids are clear. IMPRESSION: No acute intracranial pathology. Dictated by: Jared Herrera M.D. on 02/26/2025 at 14:27 Approved by: Jared Herrera M.D. on 02/26/2025 at 14:28 CT - cervical spine: Radiologist's Impression: PROCEDURE: CT CERVICAL SPINE WO CON INDICATIONS: fall hit back of head TECHNIQUE: Noncontrast 3 mm thick sections acquired from the skull base to the T4 level. Sagittal and coronal reformats were then constructed. For radiation dose reduction, the following was used: automated exposure control, adjustment of mA and/or kV according to patient size. COMPARISON: None. FINDINGS: Image quality: Excellent. Bones: No cervical fractures or dislocations. Cervical spondylosis. Visualized superior ribs are intact. Soft tissues: Prevertebral soft tissues are normal in thickness. No paravertebral hematomas. No apical pneumothoraces. Small bilateral pleural effusions and bibasilar atelectasis. IMPRESSION: No displaced fracture or traumatic subluxation. Dictated by: Jared Herrera M.D. on 02/26/2025 at 14:28 Approved by: Jared Herrera M.D. on 02/26/2025 at 14:34 MDM Narrative Medical decision making narrative: 84-year-old female with a past medical history of dementia, prior CVA, hiatal hernia, HTN, HLD, asthma who presents to the emergency department with her for head trauma/fall that occurred 1 week ago. Patient had an unwitnessed mechanical fall after drinking alcohol during a wedding celebration 1 week ago. Differential diagnosis includes but isn't limited to closed head injury, contusion, concussion, skull fracture, ICH, etc. On exam patient is in no acute distress, nontoxic-appearing, all vital signs within normal limits. She has no focal neurologic deficits, she is at her reported baseline dementia. CT head and cervical spine obtained in triage given patient had a fall hitting her head 1 week ago. Imaging reveals chronic findings, no acute intracranial pathology. Patient her were very reassured by these findings, eager for discharge home. Discussed strict ED return precautions and PCP follow up. Patient verbalized understanding of all information agreeable with the plan. She is stable for discharge home. Discharge Plan Departure Patient Disposition: Home Clinical Impression: Contusion of scalp Qualifiers: Encounter type: initial encounter Qualified Code(s): S00.03XA - Contusion of scalp, initial encounter Fall Qualifiers: Encounter type: initial encounter Qualified Code(s): W19.XXXA - Unspecified fall, initial encounter Instructions: DI for Contusion, How to Prevent Falls Activity Restrictions/Additional Instructions: Dear David, Thank you for coming to the emergency department. Today you were evaluated after having a fall with head injury. The CT scan of your head and cervical spine reveal no brain bleed or fractures. Please rest, hydrate, use Tylenol if needed for pain, and be extra cautious to avoid repeat falls. Please return to emergency department immediately if you develop severe pain, persistent vomiting, visual disturbance or any other concerns. Please follow up with your primary care doctor within the next 2-3 days for ER follow-up. (If you do not have a PCP you can call [phone]. ?to schedule an appointment with an [facility] Primary Care Provider) IF YOU DEVELOP ANY NEW OR WORSENING SYMPTOMS, RETURN TO THE ER! Please read the attached instructions, they highlight more specific treatments and interventions for you at home. Thank you for letting me participate in your care, Blanca Lock PA-C Prescriptions: No Action amlodipine 5 mg tablet 5 mg PO DAILY Patient Comments: TAKE 1 TABLET BY MOUTH DAILY alendronate 70 mg tablet 70 mg PO QWEEK Patient Comments: TAKE 1 TABLET BY MOUTH EVERY 7 DAYS. TAKE 30 MINUTES BEFORE FIRST FOOD/DRINK/MEDS OF THE DAY. STAY UPRIGHT FOR 30 MINUTES Rx Instructions: TAKE 1 TABLET BY MOUTH EVERY 7 DAYS. TAKE 30 MINUTES BEFORE FIRST FOOD/DRINK/MEDS OF THE DAY. STAY UPRIGHT FOR 30 MINUTES atorvastatin 40 mg tablet 40 mg PO DAILY fluticasone propion-salmeterol [Advair Diskus] 250-50 mcg/dose Blister With Device 1 inh INHALATION BID ascorbic acid (vitamin C) 1,000 mg Tablet 500 mg PO DAILY dextroamphetamine sulfate 10 mg Tablet 5 mg PO DAILY Rx Instructions: only takes 1/2 tab lorazepam 0.5 mg Tablet 0.5 mg PO BID PRN (Reason: Anxiety) albuterol sulfate [Ventolin HFA] 90 mcg/actuation Hfa Aerosol Inhaler 2 puff INHALATION Q4-6H PRN (Reason: sob) levothyroxine 112 mcg Tablet 112 mcg PO DAILY Azo Cranberry Plus Probiotic 250-30-50 [id number] Tablet 1 tab PO DAILY lidocaine 5 % adhesive patch,medicated 1 patch topical DAILY PRN (Reason: neck pain) Qty: 15 0RF Rx Instructions: leave on most painful area for up to 12 hrs tramadol [Ultram] 50 mg tablet 50 mg PO Q6H PRN (Reason: pain) Qty: 14 0RF Referrals: Christina Saeed MD [Primary Care Provider, Internal Medicine] Stand Alone Forms: Patient Portal/API ED Sign-out <Fransisca Rubalcava, - Last Filed: 02/27/25 08:31> Cosign ED Attending Jacobo Attestation: I was available for consultation.
[2025-02-26 15:00] VITALS: BP 120/91; PULSE 62; RESP 16; TEMP 36.6; O2SAT 95
== END 2025-02-26 15:06 | disposition home or self-care (01) ==
PROVIDERS: Emergency Provider Physician Assistant; PCP Internal Medicine
DX: S00.03XA Contusion of scalp, initial encounter (principal); W18.30XA Fall on same level, unspecified, initial encounter
CPT/HCPCS: 70450; 72125; 99281; 99284

== ENCOUNTER → 2025-04-28 14:10 | Outpatient (CLI) | payer MEDICARE, SELFPAY ==
[2021-10-31 15:08] VITALS: BMI 25.4
--- NOTE | 2025-04-28 | DI.MRI.S_ITS ---
PROCEDURE: MR ANGIO HEAD WO CON INDICATIONS: MULTIPLE CEREBRAL INFARCTIONS TECHNIQUE: Noncontrast axial 3-D [id number] MR angiogram, with 3-dimensional maximum intensity projection (MIP) reformats of the internal carotid arteries and posterior circulation then performed. COMPARISON: [facility], CT, CT HEAD/BRAIN WO CON, 02/26/2025, 14:11. [facility], MR, MR HEAD/BRAIN WO CON, 04/28/2025, 14:20. [facility], MR, MR HEAD/BRAIN WO/W CON, 03/01/2020, 15:46. FINDINGS: Image quality: This examination is limited by involuntary motion artifact. Anterior circulation: Intracranial internal carotid arteries demonstrate normal size and intraluminal flow signal. The flow within the paired anterior cerebral arteries is normal and symmetric. The flow within the middle cerebral arteries is normal and symmetric. The anterior communicating artery is seen. No stenoses, occlusions, or aneurysms. Posterior circulation: Visualized portions of the vertebral arteries demonstrate normal caliber, and join to form a normal appearing basilar artery. The flow within the posterior cerebral arteries is normal and symmetric. No stenoses, occlusions, or aneurysms. IMPRESSION: Motion limited study, yet without a significant acute intracranial vascular abnormality seen. Dictated by: Phil Higginbotham M.D. on 04/28/2025 at 16:13 Approved by: Phil Higginbotham M.D. on 04/28/2025 at 16:14
--- NOTE | 2025-04-28 14:13 | DI.MRI.S_ITS ---
PROCEDURE: MR HEAD/BRAIN WO CON INDICATIONS: multiple cerebral infarctions TECHNIQUE: Non-contrast axial T1 spin echo, axial T2 fast spin echo, sagittal and axial FLAIR, coronal T2 fast spin echo, axial gradient echo, axial diffusion and ADC through the brain. COMPARISON: [facility], CT, CT HEAD/BRAIN WO CON, 02/26/2025, 14:11. [facility], MR, MR HEAD/BRAIN WO/W CON, 03/01/2020, 15:46. [facility], MR, MR ANGIO HEAD WO CON, 04/28/2025, 14:20. [facility], MR, MR HEAD/BRAIN WO CON, 11/25/2024, 17:04. FINDINGS: Image quality: This examination is limited by involuntary motion artifact. CSF spaces: Ventricles appear symmetric in size and shape. Basal cisterns are patent. No extra-axial fluid collections. Brain: No intracranial bleeds or mass effects. Moderate generalized brain parenchymal volume loss can be seen. There is mild chronic small vessel ischemic change. Brainstem appears normal. Diffusion-weighted images show no acute infarct. Multiple small areas of prior infarction can be seen, yet without a significant territorial infarction. Normal intravascular flow voids are present. Skull and face: Calvarial bone marrow is normal in signal. Orbits are normal. Note is made of bilateral lens replacements. Sinuses: Sinuses and mastoids are clear. IMPRESSION: Multiple focal areas of prior infarction can be seen, yet without a territorial infarct. No findings of acute or subacute infarction can be seen. Moderate generalized brain parenchymal volume loss is seen. Dictated by: Phil Higginbotham M.D. on 04/28/2025 at 16:01 Approved by: Phil Higginbotham M.D. on 04/28/2025 at 16:03
== END ==
LOC: MRI 14:11
PROVIDERS: PCP Family Medicine; Referring Provider Family Medicine; Visit Provider Family Medicine
DX: I63.9 Cerebral infarction, unspecified (principal)
CPT/HCPCS: 70544; 70551